=== PATIENT | male | born 1950 | race Caucasian/White ===

== ENCOUNTER 2016-08-21 16:44 | Inpatient (IN) | payer OTHER ==
[~2016-08-21] VITALS: Ht 188 cm; Wt 146.7 kg
[2016-08-21] MEDS ORDERED: ASPIRIN 81 MG CHEW TABLET As Ordered ONE (17:19)
[2016-08-21] MEDS ORDERED: METOPROLOL 5 MG/5 ML VIAL As Ordered ONE (17:45)
[2016-08-21 17:52] LABS: BASO # 0.2 K/mm3 (0.0-0.2); BASO % 2.1 % (0.0-1.0); EOS # 0.4 K/mm3 (0.0-0.50); EOS % 3.7 % (0.0-3.0); LARGE UNSTAINED CELL # 0.2 K/mm3 (0.0-0.4); LARGE UNSTAINED CELL % 2.4 % (0.0-4.0); LYMPH # 2.9 K/mm3 (1.5-4.5); LYMPH % 26.4 % (24.0-44.0); MEAN CORPUSCULAR HGB CONC 33.3 g/dl (32.0-36.5); MEAN CORPUSCULAR VOLUME 90.1 fl (80.0-96.0); MONO # 0.6 K/mm3 (0.0-0.8); MONO % 5.8 % (0.0-5.0); NEUTROPHILS % 59.5 % (36.0-66.0); PLATELET COUNT, AUTOMATED 316 k/mm3 (150-450); RED CELL DISTRIBUTION WIDTH 13.2 % (11.5-14.5); WHITE BLOOD COUNT 10.1 K/mm3 (4.0-10.0)
[2016-08-21 18:04] LABS: ANION GAP 11 MEQ/L (8-16); BLOOD UREA NITROGEN 20 MG/DL (7-18); CALCIUM LEVEL 9.4 MG/DL (8.8-10.2); CARBON DIOXIDE LEVEL 26 MEQ/L (21-32); CHLORIDE LEVEL 105 MEQ/L (98-107); CREATININE FOR GFR 0.99 MG/DL (0.70-1.30); GLOMERULAR FILTRATION RATE > 60.0 (>49); GLUCOSE, FASTING 95 MG/DL (80-110); POTASSIUM SERUM 4.1 MEQ/L (3.5-5.1); SODIUM LEVEL 142 MEQ/L (136-145); T UPTAKE 30 % (33-40)
--- NOTE | 2016-08-21 18:10 | REP ---
Chest x-ray: Two views: History: Chest pain. Findings: EKG monitoring electrodes overlie the chest. The lungs are symmetrically aerated and free of infiltrate. Pleural angles are sharp. Heart is not felt to be enlarged. Pulmonary vasculature is not increased. Impression: No active disease. Signed by Neo Greenfield MD 08/21/2016 06:42 P
[2016-08-21] MEDS: OMEGA-3 1050MG CAPSULE PO SCH (21:00)
[2016-08-21] MEDS ORDERED: ATORVASTATIN 20 MG TAB As Ordered ONE (22:41)
[2016-08-21] MEDS ORDERED: ACETAMINOPHEN TAB 650MG DOSE (2X325MG) PO PRN (22:45)
[2016-08-21] MEDS ORDERED: ONDANSETRON 4MG/2ML VIAL (J2405) IV PRN (22:45)
[2016-08-21] MEDS ORDERED: PERCOCET 5MG/325MG TAB PO PRN (22:45)
[2016-08-21] MEDS ORDERED: ONDANSETRON 4 MG TAB (S0181) PO PRN (22:45)
[2016-08-21] MEDS ORDERED: VERAPAMIL 180 MG SR TAB PO ONE (23:15)
[2016-08-21] MEDS ORDERED: carBAMazepine 200 MG TAB PO ONE (23:15)
[2016-08-21] MEDS ORDERED: PERCOCET 5MG/325MG TAB As Ordered ONE (23:36)
[2016-08-21] MEDS ORDERED: VERA1TAB11 PO (23:37)
[2016-08-21] MEDS ORDERED: ATOR1TAB18 PO (23:37)
[2016-08-21] MEDS ORDERED: OCUVTAB PO (23:37)
[2016-08-21] MEDS ORDERED: VALS1TAB46 PO (23:37)
[2016-08-21] MEDS ORDERED: CILO100T PO (23:37)
[2016-08-21] MEDS ORDERED: HYDR25TAB PO (23:37)
[2016-08-21] MEDS ORDERED: CARB1TAB20 PO (23:37)
[2016-08-21] MEDS ORDERED: ASPI81TAEC PO (23:37)
[2016-08-21] MEDS ORDERED: VITA100066 PO (23:37)
[2016-08-21] MEDS ORDERED: FISH1000 PO (23:37)
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
[2016-08-22 00:43] VITALS: BP 132/83
--- NOTE | 2016-08-22 00:43 | EDDOCDS ---
Physician Documentation [facility] Name: Carlos A England Age: 65 yrs Sex: Male : 1950 Arrival Date: 08/21/2016 Time: 16:44 Bed 10 Private MD: NO PRIMARY PHYSICIAN, . Disposition: 08/21/16 22:34 Hospitalization ordered by Rayna Pandey for Observation. Preliminary diagnosis is Unspecified atrial flutter. - Bed requested for PCU. - Status is Observation. cz - Condition is Stable. - Problem is new. - Symptoms have improved. Historical: - Allergies: no known allergies; - Home Meds: 1. atorvastatin 80 mg oral tab 1 tab once daily 2. Carbamazepine 400mg in am, 200mg in pm, 200mg in evening Oral 3. Vitamin D Oral 1,000 unit daily 4. cilostazol 100 mg oral tab 1 tab 2 times per day 5. Fish Oil 1,000 mg Oral cap 2 tabs daily 6. hydrochlorothiazide 25 mg Oral tab 1 tab once daily 7. multivitamin Oral tab 1 tablet daily 8. valsartan 80 mg oral tab 1 tab once daily 9. verapamil 180 mg Oral C24P 1 cap once daily 10. aspirin 81 mg Oral chew 1 tab once daily - PMHx: Hypertension; Hypercholesterolemia; hyperlipidemia; Sleep Apnea w/ CPAP; Trigeminal Neuralgia; peripheral artery disease; - PSHx: heart cath; repair of leg fracture; facial fracture repair; - Social history: Smoking status: Patient states former smoker of tobacco. No barriers to communication noted, The patient speaks fluent [place]. - Family history: Not pertinent. - : The pt / caregiver states he / she is not on anticoagulants. Home medication list is obtained from the patient. - Exposure Risk Screening:: None identified. Vital Signs: 08/21 16:47 BP 144 / 100; Pulse 131; Resp 18 S; Temp 96.0(O); Pulse Ox 98% on R/A; Weight 136.08 kg gr2 / 300.01 lbs (R); Height 6 ft. 2 in. (187.96 cm) (R); Pain 3/10; 17:35 BP 160 / 77; Pulse 131; Resp 20; Pulse Ox 97% on R/A; Pain 0/10; dwg 17:50 BP 146 / 92; Pulse 129; Resp 20; Pulse Ox 97% on R/A; dwg 17:55 BP 140 / 94; Pulse 123; Resp 16; Pulse Ox 98% on R/A; dwg 18:00 BP 136 / 107; Pulse 124; Resp 16; Pulse Ox 97% on R/A; dwg 18:43 BP 113 / 79; Pulse 122; Resp 20; Pulse Ox 98% on R/A; Pain 0/10; dwg 19:33 BP 122 / 79; Pulse 122; Resp 20; Pulse Ox 95% on R/A; Pain 0/10; cf2 20:00 BP 116 / 75; Pulse 124; Resp 18; Pulse Ox 100% on 2 lpm NC; cf2 20:30 BP 122 / 64; Pulse 122; Resp 18; Pulse Ox 100% on 2 lpm NC; cf2 21:00 BP 126 / 71; Pulse 122; Resp 18; Pulse Ox 100% on 2 lpm NC; cf2 22:15 BP 125 / 70; Pulse 124; Resp 18; Pulse Ox 100% on R/A; cf2 22:15 BP 144 / 88; Pulse 122; Resp 18; Pulse Ox 100% on 2 lpm NC; cf2 23:52 BP 123 / 62; Pulse 122; Resp 18; Temp 98.0; Pulse Ox 99% on 2 lpm NC; Pain 0/10; cf2 16:47 Body Mass Index 38.52 (136.08 kg, 187.96 cm) gr2 18:00 Denies any chest pain or shortness of breath. No changhe in heart rate following dwg Metoprolol IV x 3. MDM: 17:00 ECG WITH READING ER PHYS+CARDIAG ordered. EDMS 17:16 Aspirin Chewable Tablet 324 mg PO once ordered. fg 17:16 System Sales Consultant/Pulse Ox/q 30 min VS ordered. fg 17:16 IV Saline Lock ordered. fg 17:16 Rhythm Strip to chart ordered. fg 17:16 Undress patient appropriately for examination ordered. fg 17:18 Basic Metabolic Profile Ordered. EDMS 17:18 CBC with Diff Ordered. EDMS 17:18 Cardiac Injury Profile Ordered. EDMS 17:18 Partial Thromboplastin Time Ordered. EDMS 17:18 Prothrombin Time Profile\E\INR Ordered. EDMS 17:18 Troponin Ordered. EDMS 17:19 Chest, 2 View (pa\E\lat) Ordered. EDMS 17:25 Metoprolol 5 mg IVP every 5 minutes; Hold for SBP < 100 or HR < 60. x3 ordered. le 17:31 D-DIMER QUANT Ordered. EDMS 17:31 THYROID PROFILE Ordered. EDMS 17:38 BNP Ordered. EDMS 18:16 Basic Metabolic Profile Reviewed. le 18:16 CBC with Diff Reviewed. le 18:16 THYROID PROFILE Reviewed. le 18:16 Cardiac Injury Profile Reviewed. le 18:16 Partial Thromboplastin Time Reviewed. le 18:16 Prothrombin Time Profile\E\INR Reviewed. le 18:16 Troponin Reviewed. le 18:16 D-DIMER QUANT Reviewed. le 18:16 BNP Reviewed. le 18:16 Chest, 2 View (pa\E\lat) Reviewed. le 18:45 Financial registration complete. zo 18:51 [facility] Payment Agreement was scanned into [employer] and attached to record. zo 19:11 Diltiazem 10 mg IVP once; administer over 2 minutes ordered. le 19:53 Diltiazem 10 mg IVP once; administer over 2 minutes ordered. le 20:55 NS 0.9% 500 ml IV at bolus once ordered. le 22:37 carBAMazepine 400 mg PO once ordered. le 22:37 Atorvastatin 80 mg PO once ordered. le 22:37 Verapamil Extended Release Tablet 180 mg PO once ordered. le 22:41 CARDIAC MARKER PANEL Ordered. EDMS 22:41 CARDIAC MARKER PANEL Ordered. EDMS 22:41 CARDIAC MARKER PANEL Ordered. EDMS 22:42 CBC WITH DIFFERENTIAL Ordered. EDMS 22:42 BASIC METABOLIC PROFILE Ordered. EDMS 22:42 MAGNESIUM LEVEL Ordered. EDMS 22:43 BED REQUEST+ADM ordered. EDMS 22:44 Admission / Observation Status ordered. EDMS 22:44 ECHOCARD,DOPPLER/COLOR FLOW ordered. EDMS 22:44 2 GRAM SODIUM DIET ordered. EDMS 22:47 Acetaminophen Tablet 650 mg PO once ordered. le 23:51 oxyCODONE-acetaminophen 5 mg-325 mg 1 tabs PO once ordered. cf2 Administered Medications: Discontinued: NS 0.9% 500 ml IV at bolus once 17:20 Drug: Aspirin 324 mg [aspirin 81 mg chewable tablet (4 tabs)] Route: PO; dwg 17:50 Drug: Metoprolol 5 mg [metoprolol 5 mg/5 mL intravenous solution (5 mL)] Route: IVP; dwg Site: right antecubital; 17:55 Drug: Metoprolol 5 mg [metoprolol 5 mg/5 mL intravenous solution (5 mL)] Route: IVP; [facility] Site: right antecubital; 18:06 Drug: Metoprolol 5 mg [metoprolol 5 mg/5 mL intravenous solution (5 mL)] Route: IVP; [facility] Site: right antecubital; 19:41 Follow up: Response: No change in rate dw 19:20 Drug: Diltiazem 10 mg [diltiazem 5 mg/mL intravenous solution (2 mL)] Route: IVP; Site: cf2 left antecubital; 20:54 Follow up: Response: No significant change. cf2 19:41 CANCELLED (Duplicate Order): metoprolol 5 mg IV at bolus once [facility] 20:00 Drug: Diltiazem 10 mg [diltiazem 5 mg/mL intravenous solution (2 mL)] Route: IVP; Site: cf2 left antecubital; 20:54 Follow up: Response: No significant change. cf2 08/22 00:33 Follow up: Response: No significant change. cf2 08/21 20:55 Drug: NS 0.9% 500 ml [sodium chloride 0.9 % intravenous solution] Route: IV; Rate: cf2 bolus; Site: left antecubital; 23:48 Drug: carBAMazepine 400 mg [carbamazepine 200 mg tablet (2 tabs)] Route: PO; cf2 08/22 00:32 Follow up: Response: No significant change. cf2 08/21 23:48 Drug: Atorvastatin 80 mg [atorvastatin 20 mg tablet (4 tabs)] Route: PO; cf2 08/22 00:32 Follow up: Response: No significant change. cf2 08/21 23:48 Drug: Verapamil Extended Release Tablet 180 mg Route: PO; cf2 08/22 00:32 Follow up: Response: No significant change. cf2 08/21 23:48 Not Given (Patient Refused): Acetaminophen Tablet 650 mg PO once cf2 23:51 Drug: oxyCODONE-acetaminophen 1 tabs [oxycodone-acetaminophen 5 mg-325 mg tablet (1 cf2 tabs)] Route: PO; 08/22 00:32 Follow up: Response: No significant change. cf2 Signatures: Dispatcher [employer] EDMS KnowlesJcarlos RN RN dwg Peters, Mary, RN RN mcp Zecher, Calvin, MAILE GR cz Helena YamileNickShirlene, Game Preserve Manager Unit ml3 Rachna Mann Lisa, FNP FNP le Gill, Frances, MD MD Yoko Thompson RN RN cf2 The chart was reviewed and I authenticate all verbal orders and agree with the evaluation and treatment provided.Corrections: (The following items were deleted from the chart) 08/21 17:29 17:18 B-Type NATIURETIC PEPTIDE+LAB ordered. EDMS EDMS 17:31 17:26 D-DIMER QUANT+LAB ordered. EDMS EDMS 17:31 17:26 THYROID PROFILE+LAB ordered. EDMS EDMS 19:41 19:40 metoprolol 5 mg IV at bolus once ordered. juaquin reza Attachments: 18:51 [facility] Payment Agreement zo MTDD
--- NOTE | 2016-08-22 00:43 | EDDOCDS ---
Nurse's Notes [facility] Name: Carlos A England Age: 65 yrs Sex: Male : 1950 Arrival Date: 08/21/2016 Time: 16:44 Bed 10 Private MD: NO PRIMARY PHYSICIAN, . Diagnosis: Unspecified atrial flutter Presentation: 08/21 16:49 Presenting complaint: Patient states: Sent here from [place] for evaluation of atrial mcp flutter. Heart racing, face hot. Adult Sepsis Screening: The patient does not have new or worsening altered mentation. Patient's respiratory rate is less than 22. Systolic blood pressure is greater than 100. Patient has a qSOFA score of 0- Negative Sepsis Screen. Suicide/Homicide risk assessment- the patient denies having any suicidal and/or homicidal ideations and does not present with any other emotional, behavioral or mental health complaints. Status: Patient is not a facility service associate or dependent. Transition of care: patient was not received from another setting of care. 16:49 Acuity: JACK Level 3 [facility] 16:49 Method Of Arrival: Walkin/Carried/Asstd [facility] Triage Assessment: 16:56 General: Appears in no apparent distress, Behavior is cooperative. Pain: Denies pain. [facility] HIV screening NA for this visit Offered previously. Neurological: No deficits noted. Respiratory: Airway is patent Respiratory effort is even, unlabored. Derm: Skin is pink, warm & dry. Historical: - Allergies: no known allergies; - Home Meds: 1. atorvastatin 80 mg oral tab 1 tab once daily 2. Carbamazepine 400mg in am, 200mg in pm, 200mg in evening Oral 3. Vitamin D Oral 1,000 unit daily 4. cilostazol 100 mg oral tab 1 tab 2 times per day 5. Fish Oil 1,000 mg Oral cap 2 tabs daily 6. hydrochlorothiazide 25 mg Oral tab 1 tab once daily 7. multivitamin Oral tab 1 tablet daily 8. valsartan 80 mg oral tab 1 tab once daily 9. verapamil 180 mg Oral C24P 1 cap once daily 10. aspirin 81 mg Oral chew 1 tab once daily - PMHx: Hypertension; Hypercholesterolemia; hyperlipidemia; Sleep Apnea w/ CPAP; Trigeminal Neuralgia; peripheral artery disease; - PSHx: heart cath; repair of leg fracture; facial fracture repair; - Social history: Smoking status: Patient states former smoker of tobacco. No barriers to communication noted, The patient speaks fluent Latvian. - Family history: Not pertinent. - : The pt / caregiver states he / she is not on anticoagulants. Home medication list is obtained from the patient. - Exposure Risk Screening:: None identified. Screenin:33 Screening information is obtained from the patient. Fall risk: No risks identified. cf2 Assistance ADL's: requires no assistance with activities of daily living. Abuse/DV Screen: The patient / caregiver reports he/she is: not in a situation that causes fear, pain or injury. Nutritional screening: No deficits noted. Advance Directives: Further advance directive information is declined. home support is adequate. Assessment: 17:35 General: Appears in no apparent distress, comfortable, Behavior is cooperative, dwg pleasant. Pain: Denies pain. Neurological: Level of Consciousness is awake, alert, Oriented to person, place, time. Cardiovascular:. Respiratory: Airway is patent Respiratory effort is even, unlabored, Respiratory pattern is regular, symmetrical. 18:24 General: Remains in fast A-flutter on monitor, denies any chest discomfort, SOB or dwg dizziness.. 18:42 General: Awake and alert, denies chest pain, at bedside, remains in fast A-flutter dwg in the 120's.. 23:52 Reassessment: Patient appears in no apparent distress at this time. Patient states cf2 feeling better. Patient states symptoms have not improved. Adult Sepsis Screening: The patient does not have new or worsening altered mentation. Patient's respiratory rate is less than 22. Systolic blood pressure is greater than 100. Patient has a qSOFA score of 0- Negative Sepsis Screen. Vital Signs: 16:47 BP 144 / 100; Pulse 131; Resp 18 S; Temp 96.0(O); Pulse Ox 98% on R/A; Weight 136.08 kg gr2 (R); Height 6 ft. 2 in. (187.96 cm) (R); Pain 3/10; 17:35 BP 160 / 77; Pulse 131; Resp 20; Pulse Ox 97% on R/A; Pain 0/10; dwg 17:50 BP 146 / 92; Pulse 129; Resp 20; Pulse Ox 97% on R/A; dwg 17:55 BP 140 / 94; Pulse 123; Resp 16; Pulse Ox 98% on R/A; dwg 18:00 BP 136 / 107; Pulse 124; Resp 16; Pulse Ox 97% on R/A; dwg 18:43 BP 113 / 79; Pulse 122; Resp 20; Pulse Ox 98% on R/A; Pain 0/10; dwg 19:33 BP 122 / 79; Pulse 122; Resp 20; Pulse Ox 95% on R/A; Pain 0/10; cf2 20:00 BP 116 / 75; Pulse 124; Resp 18; Pulse Ox 100% on 2 lpm NC; cf2 20:30 BP 122 / 64; Pulse 122; Resp 18; Pulse Ox 100% on 2 lpm NC; cf2 21:00 BP 126 / 71; Pulse 122; Resp 18; Pulse Ox 100% on 2 lpm NC; cf2 22:15 BP 125 / 70; Pulse 124; Resp 18; Pulse Ox 100% on R/A; cf2 22:15 BP 144 / 88; Pulse 122; Resp 18; Pulse Ox 100% on 2 lpm NC; cf2 23:52 BP 123 / 62; Pulse 122; Resp 18; Temp 98.0; Pulse Ox 99% on 2 lpm NC; Pain 0/10; cf2 16:47 Body Mass Index 38.52 (136.08 kg, 187.96 cm) gr2 18:00 Denies any chest pain or shortness of breath. No changhe in heart rate following dwg Metoprolol IV x 3. Vitals: 16:47 Log In Time: August 21, 2016 at 16:47. RN notified that patient meets Red Flag gr2 criteria. ED Course: 16:46 Patient visited by Rohit Gallego. gr2 16:46 NO PRIMARY PHYSICIAN, . is Private Physician. gr2 16:46 Patient moved to Waiting gr2 16:48 Patient visited by Rohit Gallego. gr2 16:48 Patient moved to Pre RCE gr2 16:50 Triage Initiated [facility] 16:56 Patient visited by Yamile Martinez, MAILE. [facility] 16:56 Elyssa Castillo,RN is Primary Nurse. [facility] 16:56 Patient moved to 10 mcp 17:07 EKG done. (by ED staff). Reviewed by Paige SHAH. jrd 17:08 Patient visited by Rip Holguin, MARILYN. jrd 17:21 Primary Nurse role handed off by Elyssa Castillo RN mcp 17:24 [facility]ente F[facility]. le 17:32 Patient visited by Paige Valente FNP. le 17:33 Patient visited by Paige Valente FNP. le 17:34 THYROID PROFILE Sent. dwg 17:34 D-DIMER QUANT Sent. dwg 17:34 Basic Metabolic Profile Sent. dwg 17:34 CBC with Diff Sent. dwg 17:34 Cardiac Injury Profile Sent. dwg 17:34 Partial Thromboplastin Time Sent. dwg 17:35 Prothrombin Time Profile\E\INR Sent. dwg 17:35 Troponin Sent. dwg 18:09 Patient visited by Jcarols Knowles RN. dwg 18:12 Chest, 2 View (pa\E\lat) Returned. EDMS 18:24 Patient visited by Jcarlos Knowles RN. dwg 18:43 Patient visited by Jcarlos Knowles RN. dwg 18:51 [facility] Payment Agreement was scanned into [employer] and attached to record. zo 18:57 Patient name changed from Carlos A\S\B\S\Samanta\S\ to Carlos A\S\M\S\Samanta. EDMS 19:11 Chest, 2 View (pa\E\lat) Returned. EDMS 19:15 Yoko Thompson,RN is Primary Nurse. cf2 19:15 Patient visited by Yoko Thompson,MAILE. cf2 19:33 The patient / caregiver is instructed regarding the plan of care and ED course. Patient cf2 has correct armband on for positive identification. Placed in gown. Bed in low position. Call light in reach. Side rails up X 1. Side rails up X2. plan manager on. Pulse ox on. NIBP on. Property :Personal belongings accompany Pt. Door closed. Noise minimized. Visitors limited. Lights dimmed. Moved to private room. Verbal reassurance given. Warm blanket given. Pillow given. Head of bed elevated. 19:55 Patient visited by Yoko Thompson,MAILE. cf2 20:28 Patient visited by Yoko Thompson,MAILE. cf2 21:08 Patient visited by Yoko Thompson RN. cf2 21:17 Patient visited by Yoko Thompson RN. cf2 21:23 Patient visited by Gavino Wild PCA. kb5 21:47 Patient visited by Yoko Thompson RN. cf2 22:34 Rayna Pandey is Hospitalizing Provider. le 23:05 Patient visited by Gavino Wild PCA. kb5 23:57 Patient visited by Yoko Thompson RN. cf2 08/22 00:05 Patient visited by Yoko Thompson RN. cf2 00:23 Patient visited by Yoko Thompson RN. cf2 00:26 Inserted saline lock: 20 gauge in left antecubital area. No procedures done that cf2 require assistance. Administered Medications: Discontinued: NS 0.9% 500 ml IV at bolus once 08/21 17:20 Drug: Aspirin 324 mg [aspirin 81 mg chewable tablet (4 tabs)] Route: PO; dwg 17:50 Drug: Metoprolol 5 mg [metoprolol 5 mg/5 mL intravenous solution (5 mL)] Route: IVP; dwg Site: right antecubital; 17:55 Drug: Metoprolol 5 mg [metoprolol 5 mg/5 mL intravenous solution (5 mL)] Route: IVP; dwg Site: right antecubital; 18:06 Drug: Metoprolol 5 mg [metoprolol 5 mg/5 mL intravenous solution (5 mL)] Route: IVP; dwg Site: right antecubital; 19:41 Follow up: Response: No change in rate dwg 19:20 Drug: Diltiazem 10 mg [diltiazem 5 mg/mL intravenous solution (2 mL)] Route: IVP; Site: cf2 left antecubital; 20:54 Follow up: Response: No significant change. cf2 19:41 CANCELLED (Duplicate Order): metoprolol 5 mg IV at bolus once [facility] 20:00 Drug: Diltiazem 10 mg [diltiazem 5 mg/mL intravenous solution (2 mL)] Route: IVP; Site: cf2 left antecubital; 20:54 Follow up: Response: No significant change. cf2 08/22 00:33 Follow up: Response: No significant change. cf2 08/21 20:55 Drug: NS 0.9% 500 ml [sodium chloride 0.9 % intravenous solution] Route: IV; Rate: cf2 bolus; Site: left antecubital; 23:48 Drug: carBAMazepine 400 mg [carbamazepine 200 mg tablet (2 tabs)] Route: PO; cf2 08/22 00:32 Follow up: Response: No significant change. cf2 08/21 23:48 Drug: Atorvastatin 80 mg [atorvastatin 20 mg tablet (4 tabs)] Route: PO; cf2 08/22 00:32 Follow up: Response: No significant change. cf2 08/21 23:48 Drug: Verapamil Extended Release Tablet 180 mg Route: PO; cf2 08/22 00:32 Follow up: Response: No significant change. cf2 08/21 23:48 Not Given (Patient Refused): Acetaminophen Tablet 650 mg PO once cf2 23:51 Drug: oxyCODONE-acetaminophen 1 tabs [oxycodone-acetaminophen 5 mg-325 mg tablet (1 cf2 tabs)] Route: PO; 08/22 00:32 Follow up: Response: No significant change. cf2 Order Results: Lab Order: Basic Metabolic Profile; SPEC'M 08/21/16 17:30 Test: GLUCOSE, FASTING; Value: 95; Range: 80-110; Units: MG/DL; Status: F Test: BLOOD UREA NITROGEN; Value: 20; Range: 7-18; Abnormal: Above high normal; Units: MG/DL; Status: F Test: CREATININE FOR GFR; Value: 0.99; Range: 0.70-1.30; Units: MG/DL; Status: F Test: GLOMERULAR FILTRATION RATE; Value: > 60.0; Range: >49; Status: F Test: SODIUM LEVEL; Value: 142; Range: 136-145; Units: MEQ/L; Status: F Test: POTASSIUM SERUM; Value: 4.1; Range: 3.5-5.1; Units: MEQ/L; Status: F Test: CHLORIDE LEVEL; Value: 105; Range: 98-107; Units: MEQ/L; Status: F Test: CARBON DIOXIDE LEVEL; Value: 26; Range: 21-32; Units: MEQ/L; Status: F Test: ANION GAP; Value: 11; Range: 8-16; Units: MEQ/L; Status: F Test: CALCIUM LEVEL; Value: 9.4; Range: 8.8-10.2; Units: MG/DL; Status: F Test Note: ; Units are mL/min/1.73 m2 Chronic Kidney Disease Staging per NKF: Stage I & II GFR >=60 Normal to Mildly Decreased Stage III GFR 30-59 Moderately Decreased Stage IV GFR 15-29 Severely Decreased Stage V GFR <15 Very Little GFR Left ESRD GFR <15 on MANAGER SPECIAL EVENTS Lab Order: CBC with Diff; SPEC'M 08/21/16 17:30 Test: WHITE BLOOD COUNT; Value: 10.1; Range: 4.0-10.0; Abnormal: Above high normal; Units: K/mm3; Status: F Test: RED BLOOD COUNT; Value: 5.42; Range: 4.30-6.10; Units: M/mm3; Status: F Test: HEMOGLOBIN; Value: 16.3; Range: 14.0-18.0; Units: g/dl; Status: F Test: HEMATOCRIT; Value: 48.8; Range: 42.0-52.0; Units: %; Status: F Test: MEAN CORPUSCULAR VOLUME; Value: 90.1; Range: 80.0-96.0; Units: fl; Status: F Test: MEAN CORPUSCULAR HEMOGLOBIN; Value: 30.0; Range: 27.0-33.0; Units: pg; Status: F Test: MEAN CORPUSCULAR HGB CONC; Value: 33.3; Range: 32.0-36.5; Units: g/dl; Status: F Test: RED CELL DISTRIBUTION WIDTH; Value: 13.2; Range: 11.5-14.5; Units: %; Status: F Test: PLATELET COUNT, AUTOMATED; Value: 316; Range: 150-450; Units: k/mm3; Status: F Test: NEUTROPHILS %; Value: 59.5; Range: 36.0-66.0; Units: %; Status: F Test: LYMPH %; Value: 26.4; Range: 24.0-44.0; Units: %; Status: F Test: MONO %; Value: 5.8; Range: 0.0-5.0; Abnormal: Above high normal; Units: %; Status: F Test: EOS %; Value: 3.7; Range: 0.0-3.0; Abnormal: Above high normal; Units: %; Status: F Test: BASO %; Value: 2.1; Range: 0.0-1.0; Abnormal: Above high normal; Units: %; Status: F Test: LARGE UNSTAINED CELL %; Value: 2.4; Range: 0.0-4.0; Units: %; Status: F Test: NEUTROPHILS #; Value: 6.0; Range: 1.8-7.7; Units: K/mm3; Status: F Test: LYMPH #; Value: 2.9; Range: 1.5-4.5; Units: K/mm3; Status: F Test: MONO #; Value: 0.6; Range: 0.0-0.8; Units: K/mm3; Status: F Test: EOS #; Value: 0.4; Range: 0.0-0.50; Units: K/mm3; Status: F Test: BASO #; Value: 0.2; Range: 0.0-0.2; Units: K/mm3; Status: F Test: LARGE UNSTAINED CELL #; Value: 0.2; Range: 0.0-0.4; Units: K/mm3; Status: F Lab Order: Cardiac Injury Profile; SPEC 08/21/16 17:30 Test: CPK CREATINE PHOSPHOKINASE; Value: 110; Range: 39-308; Units: U/L; Status: F Test: CK-MB VALUE MASS; Value: 1.0; Range: 0.0-3.6; Units: NG/ML; Status: F Test: MB/CK RELATIVE INDEX; Value: 0.90; Range: < OR =4; Status: F Test Note: ; DIAGNOSIS CRITERIA MMB ng/ml Relative Index (RI) NON-AMI < or = 5 N/A GAINES ZONE > 5 < or = 4 AMI > 5 > 4 Lab Order: Partial Thromboplastin Time; SPEC 08/21/16 17:30 Test: PARTIAL THROMBOPLASTIN TIME; Value: 30.4; Range: 26.6-37.1; Units: SECONDS; Status: F Lab Order: Prothrombin Time Profile\E\INR; [facility] 08/21/16 17:30 Test: PROTHROMBIN TIME; Value: 13.3; Range: 12.3-14.5; Units: SECONDS; Status: F Test: INR; Value: 1.00; Status: F Test Note: ; THERAPUTIC HUMAN INR VALUES INDICATIONS NORMAL RANGES PROPHYLAXIS/TREATMENT OF: VENOUS THROMBOSIS 2.0-3.0 PULMONARY EMBOLISM 2.0-3.0 PREVENTION OF SYSTEMIC EMBOLISM FROM: TISSUE HEART VALVES 2.0-3.0 ACUTE MYOCARDIAL INFARCTION 2.0-3.0 VALVULAR HEART DISEASE 2.0-3.0 ATRIAL FIBRILLATION 2.0-3.0 MECHANICAL VALVES(HIGH RISK) 2.5-3.5 RECURRENT MYOCARDIAL INFARCTION 2.5-3.5 Lab Order: Troponin; [facility] 08/21/16 17:30 Test: TROPONIN I; Value: < 0.02; Range: < 0.10; Units: NG/ML; Status: F Test Note: ; Troponin I Reference Interval for [facility] LOCI: 99th Percentile= 0.00-0.045 ng/ml Risk Stratification: <= 0.10 ng/ml Decreased Risk for Adverse Clinical Events. 0.10-1.50 ng/ml Increased Risk for Adverse Clinical Events. Evaluation of additional criterion and/or repeat testing in 2-6 hours is suggested to rule out myocardial damage. >= 1.50 ng/ml Indicative of Myocardial Injury. Lab Order: D-DIMER QUANT; [facility] 08/21/16 17:30 Test: D-DIMER QUANT; Value: < 270.0; Range: <500; Units: ng/ml; Status: F Lab Order: THYROID PROFILE; [facility] 08/21/16 17:30 Test: T UPTAKE; Value: 30; Range: 33-40; Abnormal: Below low normal; Units: %; Status: F Test: THYROXINE (T4); Value: 8.0; Range: 4.5-12.0; Units: UG/DL; Status: F Test: FREE THYROXINE INDEX; Value: 2.4; Range: 1.4-3.8; Units: %; Status: F Test: THYROID STIMULATING HORMONE; Value: 3.310; Range: 0.358-3.740; Units: uIU/ML; Status: F Lab Order: BNP; [facility] 08/21/16 17:22 Test: BRAIN NATRIURETIC PEPTIDE; Value: 11.7; Range: <100; Units: PG/ML; Status: F Radiology Order: Chest, 2 View (pa\E\lat) Test: Chest, 2 View (pa\E\lat) REASON FOR EXAMINATION: Chest Pain; Chest x-ray: Two views:; ; History: Chest pain.; ; Findings: EKG monitoring electrodes overlie the chest. The lungs are; symmetrically aerated and free of infiltrate. Pleural angles are sharp. Heart; is not felt to be enlarged. Pulmonary vasculature is not increased.; ; Impression:; ; No active disease.; ; ; Signed by; Neo Greenfield MD 08/21/2016 06:42 P; Outcome: 08/21 22:34 Decision to Hospitalize by Provider. castro 08/22 00:26 Discharge Assessment: Patient awake, alert and oriented x 3. No cognitive and/or cf2 functional deficits noted. Patient verbalized understanding of disposition instructions. Patient patient administered narcotics - yes. Patient was admitted to the hospital or transferred to another facility. The following High Risk Discharge criteria are identified: Yes, Admitted to PCU. Condition: stable. No special radiology studies were completed. 00:42 Patient left the ED. cz Signatures: Dispatcher [employer] EDJcarlos Fulton, RN RN Yamile Brunson RN RN Gera Martin RN RN cz Olin, Zoeann zo Bancroft, Kristopher, CROSSBAR SWITCH ADJUSTER CROSSBAR SWITCH ADJUSTER kb5 Paige Valente, DEPUTY INSURANCE COMMISSIONER DEPUTY INSURANCE COMMISSIONER Rohit Beaulieu gr2 Rip Holguin, CROSSBAR SWITCH ADJUSTER CROSSBAR SWITCH ADJUSTER jrd Yoko Thompson,MAILE RN cf2 MTDD
[2016-08-22] MEDS: METOPROLOL TART 25 MG TABLET PO SCH ×4 (01:15→17:14)
[2016-08-22 04:52] VITALS: BP 152/89
[2016-08-22 05:39] LABS: BASO # 0.2 K/mm3 (0.0-0.2); BASO % 1.6 % (0.0-1.0); EOS # 0.4 K/mm3 (0.0-0.50); EOS % 4.5 % (0.0-3.0); LARGE UNSTAINED CELL # 0.2 K/mm3 (0.0-0.4); LARGE UNSTAINED CELL % 2.2 % (0.0-4.0); LYMPH # 3.7 K/mm3 (1.5-4.5); LYMPH % 34.1 % (24.0-44.0); MEAN CORPUSCULAR HGB CONC 32.8 g/dl (32.0-36.5); MEAN CORPUSCULAR VOLUME 91.5 fl (80.0-96.0); MONO # 0.6 K/mm3 (0.0-0.8); NEUTROPHILS # 5.3 K/mm3 (1.8-7.7); NEUTROPHILS % 51.7 % (36.0-66.0); PLATELET COUNT, AUTOMATED 300 k/mm3 (150-450); RED CELL DISTRIBUTION WIDTH 13.2 % (11.5-14.5); WHITE BLOOD COUNT 10.2 K/mm3 (4.0-10.0)
[2016-08-22 05:46] LABS: ANION GAP 9 MEQ/L (8-16); BLOOD UREA NITROGEN 23 MG/DL (7-18); CALCIUM LEVEL 8.5 MG/DL (8.8-10.2); CARBON DIOXIDE LEVEL 27 MEQ/L (21-32); CHLORIDE LEVEL 106 MEQ/L (98-107); CREATININE FOR GFR 0.97 MG/DL (0.70-1.30); GLOMERULAR FILTRATION RATE > 60.0 (>49); GLUCOSE, FASTING 90 MG/DL (80-110); MAGNESIUM LEVEL 2.1 MG/DL (1.8-2.4); POTASSIUM SERUM 3.6 MEQ/L (3.5-5.1); SODIUM LEVEL 142 MEQ/L (136-145)
--- NOTE | 2016-08-22 06:50 | ECGEPIP ---
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
[2016-08-22 08:00] VITALS: BP 115/90
[2016-08-22] MEDS ORDERED: DIGOXIN INJ 0.5 MG/2 ML AMP (J1160) IV ONE (08:00)
[2016-08-22] MEDS: OMEGA-3 1050MG CAPSULE PO SCH ×2 (08:59→20:23)
[2016-08-22] MEDS: APIXABAN 5 MG TAB (ELIQUIS) PO SCH ×2 (08:59→20:23)
[2016-08-22] MEDS: VITAMIN D 1,000 INTERNATIONAL UNITS TABLET PO SCH ×2 (08:59→20:23)
[2016-08-22] MEDS ORDERED: hydroCHLOROthiazide 25 MG TAB PO SCH (09:00)
[2016-08-22] MEDS ORDERED: VALSARTAN 40MG TABLET (DIOVAN) PO SCH (09:00)
[2016-08-22] MEDS ORDERED: VALSARTAN 80 MG TAB (DIOVAN) PO SCH (09:00)
--- NOTE | 2016-08-22 10:08 | IPN ---
DATE: 08/22/2016 The patient seen and examined at the bedside. The chart has been reviewed. Telemetry continues to have atrial flutter with rapid ventricular rate of 117 to 123. The patient denies any chest pain, pressure or tightness, palpitations, lightheadedness, dizziness or near syncopal episode. Denies any nausea, vomiting, epigastric pain, diaphoresis. No constipation or diarrhea. No abdominal pain. Temperature 96.7, pulse 117, respiratory rate 20, blood pressure 115/90 and 97% on room air. General: The patient is awake, alert and oriented times three, answering questions appropriately. No respiratory distress. Speaks in full sentences. No jugular venous distention. No thyromegaly. No lymphadenopathy. Lungs are clear to auscultation. No wheezing, rales or rhonchi. Heart: S1, S2. Irregularly irregular. Abdomen is obese, soft, nontender, nondistended. Positive bowel sounds. Extremities: Trace edema. White count 10, hemoglobin 15, hematocrit 46, and platelet count 300. Sodium 142, potassium 3.6, chloride 106, bicarbonate 27, BUN 23, creatinine 0.97, glucose 90, troponin less than 0.02. BNP 11.7. TSH 3.310. Imaging Studies: Chest x-ray on 08/21/2016 shows no active disease. ASSESSMENT AND PLAN: 65-year-old male with history of hypertension, hyperlipidemia, peripheral arterial disease, history of sleep apnea on CPAP, who presents to the emergency room due to new finding of atrial flutter in the 140s. The patient was sent by his primary care physician to the ER for rate control. CURRENT ISSUES: 1. Atrial flutter with rapid ventricular rate. The patient's heart rate was 140s. The patient had received Verapamil with no improvement. Currently on Eliquis, metoprolol titrated to 37.5 mg every 6 hours, one dose of digoxin. The patient's blood pressure is well maintained. Echocardiogram. Continue with anticoagulation to prevent CVA. 2. Hypertension. Stable. Due to increasing doses of metoprolol, will have to decrease the patient's valsartan and discontinue the hydrochlorothiazide. She has a blood pressure increased to 160s. The patient's blood pressure medications will be titrated for better control. 3. Hyperlipidemia. 4. History of peripheral arterial disease. Continue Lipitor. DISPOSITION: One echocardiogram has been done and rate is controlled the patient may be discharged home with outpatient followup with his primary care physician. DEANGELO
[2016-08-22 11:47] VITALS: BP 138/89
[2016-08-22] MEDS: carBAMazepine 200 MG TAB PO SCH ×2 (11:51→20:23)
[2016-08-22] MEDS: OCUVITE 1 TAB PO SCH (11:51)
[2016-08-22 16:00] VITALS: BP 149/98
--- NOTE | 2016-08-22 19:10 | ECHO ---
DATE OF PROCEDURE: 08/22/2015 REFERRING PHYSICIAN: Dr. Pandey INDICATION: Atrial flutter. HEIGHT: 188 cm WEIGHT: 146 kg. DIMENSIONS: IVS: 1.2 LV: 4.4 LVPW: 1.2 LA: 3.5 IVC: 2.0 FINDINGS: The study was rather limited technical quality corresponding to patient's body habitus. The patient was during study in atrial flutter with ventricular rate around 115 beats per minute. Left ventricle is of normal size. There is mild left ventricular hypertrophy ( LVH). Based on very poor quality of images I assume normal or relatively normal left ventricular (LV) systolic function. Right ventricle does not appear grossly enlarged. Both atria appear grossly normal. Aortic valve is sclerotic. The visualization was limited and I cannot comment much on its structure. Mitral and tricuspid valves appear grossly normal. Pulmonic valve was not well seen. No pericardial effusion is noted. Inferior vena cava is in upper limits of normal size. Aortic root and aortic arch appear normal. Abdominal aorta was not seen. Doppler interrogation of aortic valve reveals approximately mild to moderate stenosis. Peak gradient across the valve was 26 and mean gradient 15 mmHg. There is also trivial aortic insufficiency. There is no significant mitral stenosis or insufficiency and no significant tricuspid insufficiency. Evaluation of diastolic function was inconclusive due to presence of atrial flutter. Tissue Doppler velocities are relatively preserved though ( 9.2 and 12.6 cm/s in a septal and lateral mitral annulus respectively). CONCLUSION: 1. Study is of limited technical quality. 2. Normal LV size with mild LVH and grossly preserved LV systolic function based on poor visualization. 3. Mild or [id number] aortic stenosis. 4. No further significant valvular disease. 5. Likely high central venous pressure. 6. Unable to estimate pulmonary artery pressure. 7. Normal aortic root and aortic arch. COMMENT: Subacute bacterial endocarditis (SBE) prophylaxis is not recommended. [facility]
[2016-08-22 19:51] VITALS: BP 130/95
[2016-08-22] MEDS: ATORVASTATIN 20 MG TAB PO SCH (20:23)
[2016-08-22] MEDS: VERAPAMIL 180 MG SR TAB PO SCH (20:24)
[2016-08-23 00:18] VITALS: BP 120/82
[2016-08-23] MEDS: METOPROLOL TART 25 MG TABLET PO SCH ×2 (00:22→05:17)
[2016-08-23 05:14] VITALS: BP 123/92
[2016-08-23 05:39] LABS: BASO # 0.2 K/mm3 (0.0-0.2); BASO % 2.1 % (0.0-1.0); EOS # 0.5 K/mm3 (0.0-0.50); EOS % 4.5 % (0.0-3.0); LARGE UNSTAINED CELL # 0.2 K/mm3 (0.0-0.4); LARGE UNSTAINED CELL % 1.8 % (0.0-4.0); LYMPH # 3.1 K/mm3 (1.5-4.5); LYMPH % 27.3 % (24.0-44.0); MEAN CORPUSCULAR HEMOGLOBIN 29.5 pg (27.0-33.0); MEAN CORPUSCULAR HGB CONC 33.2 g/dl (32.0-36.5); MEAN CORPUSCULAR VOLUME 88.9 fl (80.0-96.0); MONO # 0.6 K/mm3 (0.0-0.8); MONO % 6.1 % (0.0-5.0); NEUTROPHILS # 6.2 K/mm3 (1.8-7.7); NEUTROPHILS % 58.2 % (36.0-66.0); PLATELET COUNT, AUTOMATED 302 k/mm3 (150-450); RED CELL DISTRIBUTION WIDTH 13.1 % (11.5-14.5); WHITE BLOOD COUNT 10.6 K/mm3 (4.0-10.0)
[2016-08-23 06:03] LABS: ANION GAP 11 MEQ/L (8-16); BLOOD UREA NITROGEN 24 MG/DL (7-18); CALCIUM LEVEL 8.5 MG/DL (8.8-10.2); CARBON DIOXIDE LEVEL 26 MEQ/L (21-32); CHLORIDE LEVEL 107 MEQ/L (98-107); CREATININE FOR GFR 0.88 MG/DL (0.70-1.30); GLOMERULAR FILTRATION RATE > 60.0 (>49); GLUCOSE, FASTING 88 MG/DL (80-110); MAGNESIUM LEVEL 2.2 MG/DL (1.8-2.4); POTASSIUM SERUM 3.9 MEQ/L (3.5-5.1); SODIUM LEVEL 144 MEQ/L (136-145)
[2016-08-23] MEDS ORDERED: DIGOXIN INJ 0.5 MG/2 ML AMP (J1160) IV STA (07:00)
[2016-08-23 07:43] LABS: DIGOXIN LEVEL 0.4 NG/ML (0.5-2.0)
[2016-08-23 08:00] VITALS: BP 142/82
--- NOTE | 2016-08-23 08:15 | IPN ---
DATE: 08/23/2016 The patient seen and examined at the bedside. The chart has been reviewed. This morning, the patient denies chest pain, pressure or tightness, palpitations, lightheadedness or dizziness. He says that his face felt a little flushed this morning. No nausea. No vomiting. No abdominal pain. Telemetry continues to be irregular with heart rate ranging from 119 to 125. The patient ambulated well. Pulse 119, respiratory rate 20, blood pressure 123/92 and 100% on room air. Generally, awake, alert and oriented times three, answering questions appropriately. Lungs are clear to auscultation. No wheezing, rales or rhonchi. Heart: S1, S2. Irregularly irregular. Abdomen is obese, soft, nontender, nondistended. Positive bowel sounds. Extremities: Trace edema. LABORATORY DATA: White count 10.6, hemoglobin 16, hematocrit 48, and platelet count 302. Sodium 144, potassium 3.9, bicarbonate 27, BUN 24, creatinine 0.8, glucose 88. Digoxin level 0.4. MICROBIOLOGY: None. IMAGING STUDY: Chest x-ray with no active disease. ASSESSMENT AND PLAN: This is a 65-year-old male with history of hypertension, hyperlipidemia, with probable history of sleep apnea on CPAP, and peripheral arterial disease who presents to the emergency room with atrial flutter sent by primary care physician for rate control. 1. Atrial flutter with rapid ventricular rate. Heart rate is in the 140s. Currently on Verapamil with no improvement. Started on Eliquis. Metoprolol has been titrated to 37.5 yesterday, will increase to 50 every 6 hours today. Extra dose of digoxin. He did receive 0.5 mg yesterday with digoxin level of 0.4 today. Echocardiogram is unremarkable. Continue with Eliquis for CVA prophylaxis. If no significant improvement with maximum doses of metoprolol and digoxin, will consult cardiology for use of amiodarone for cardioversion. 2. Hypertension, currently stable. The patient's valsartan was decreased as well as discontinued hydrochlorothiazide due to increasing doses of metoprolol being given for heart rate control. Patient continues to have adequate blood pressure. In order for us to titrate the metoprolol for heart rate control if the blood pressure were to decrease to less than 100 we will continue to give digoxin for heart rate control without affecting the blood pressure further. 3. Hyperlipidemia, on fish oil. 4. Peripheral arterial disease. Continue on Lipitor. DISPOSITION: The patient's heart rate is still not optimized, therefore, will keep one more day. If patient's heart rate increases to 140, will place on intravenous drip. If systolic pressure is less than 100, will consult cardiology for amiodarone management. MTDD
[2016-08-23] MEDS: VITAMIN D 1,000 INTERNATIONAL UNITS TABLET PO SCH ×2 (08:39→20:31)
[2016-08-23] MEDS: OMEGA-3 1050MG CAPSULE PO SCH ×2 (08:39→20:31)
[2016-08-23] MEDS: OCUVITE 1 TAB PO SCH (08:39)
[2016-08-23] MEDS: APIXABAN 5 MG TAB (ELIQUIS) PO SCH ×2 (08:39→20:31)
[2016-08-23] MEDS: carBAMazepine 200 MG TAB PO SCH ×2 (08:41→20:32)
[2016-08-23] MEDS ORDERED: METOPROLOL SUCC *XL* 25MG TAB (TopROL *XL*) PO SCH (09:00)
[2016-08-23] MEDS ORDERED: METOPROLOL SUCC *XL* 25MG TAB (TopROL *XL*) PO ONE (09:00)
[2016-08-23 12:00] VITALS: BP 131/75
[2016-08-23] MEDS: METOPROLOL TART 50 MG TAB PO SCH ×3 (12:06→23:24)
[2016-08-23 16:00] VITALS: BP 113/70
[2016-08-23 20:00] VITALS: BP 150/77
[2016-08-23] MEDS: VERAPAMIL 180 MG SR TAB PO SCH (20:31)
[2016-08-23] MEDS: ATORVASTATIN 20 MG TAB PO SCH (20:32)
[2016-08-24] VITALS: BP 157/89
--- NOTE | 2016-08-24 01:44 | EDDOCDS ---
Physician Documentation [facility] Name: Carlos A England Age: 65 yrs Sex: Male : 1950 Arrival Date: 08/21/2016 Time: 16:44 Bed 10 Private MD: NO PRIMARY PHYSICIAN, . Disposition: 08/21/16 22:34 Hospitalization ordered by Rayna Pandey for Observation. Preliminary diagnosis is Unspecified atrial flutter. - Bed requested for PCU. - Status is Observation. cz - Condition is Stable. - Problem is new. - Symptoms have improved. Historical: - Allergies: no known allergies; - Home Meds: 1. atorvastatin 80 mg oral tab 1 tab once daily 2. Carbamazepine 400mg in am, 200mg in pm, 200mg in evening Oral 3. Vitamin D Oral 1,000 unit daily 4. cilostazol 100 mg oral tab 1 tab 2 times per day 5. Fish Oil 1,000 mg Oral cap 2 tabs daily 6. hydrochlorothiazide 25 mg Oral tab 1 tab once daily 7. multivitamin Oral tab 1 tablet daily 8. valsartan 80 mg oral tab 1 tab once daily 9. verapamil 180 mg Oral C24P 1 cap once daily 10. aspirin 81 mg Oral chew 1 tab once daily - PMHx: Hypertension; Hypercholesterolemia; hyperlipidemia; Sleep Apnea w/ CPAP; Trigeminal Neuralgia; peripheral artery disease; - PSHx: heart cath; repair of leg fracture; facial fracture repair; - Social history: Smoking status: Patient states former smoker of tobacco. No barriers to communication noted, The patient speaks fluent Luxembourg[place]. - Family history: Not pertinent. - : The pt / caregiver states he / she is not on anticoagulants. Home medication list is obtained from the patient. - Exposure Risk Screening:: None identified. Vital Signs: 08/21 16:47 BP 144 / 100; Pulse 131; Resp 18 S; Temp 96.0(O); Pulse Ox 98% on R/A; Weight 136.08 kg gr2 / 300.01 lbs (R); Height 6 ft. 2 in. (187.96 cm) (R); Pain 3/10; 17:35 BP 160 / 77; Pulse 131; Resp 20; Pulse Ox 97% on R/A; Pain 0/10; dwg 17:50 BP 146 / 92; Pulse 129; Resp 20; Pulse Ox 97% on R/A; dwg 17:55 BP 140 / 94; Pulse 123; Resp 16; Pulse Ox 98% on R/A; dwg 18:00 BP 136 / 107; Pulse 124; Resp 16; Pulse Ox 97% on R/A; dwg 18:43 BP 113 / 79; Pulse 122; Resp 20; Pulse Ox 98% on R/A; Pain 0/10; dwg 19:33 BP 122 / 79; Pulse 122; Resp 20; Pulse Ox 95% on R/A; Pain 0/10; cf2 20:00 BP 116 / 75; Pulse 124; Resp 18; Pulse Ox 100% on 2 lpm NC; cf2 20:30 BP 122 / 64; Pulse 122; Resp 18; Pulse Ox 100% on 2 lpm NC; cf2 21:00 BP 126 / 71; Pulse 122; Resp 18; Pulse Ox 100% on 2 lpm NC; cf2 22:15 BP 125 / 70; Pulse 124; Resp 18; Pulse Ox 100% on R/A; cf2 22:15 BP 144 / 88; Pulse 122; Resp 18; Pulse Ox 100% on 2 lpm NC; cf2 23:52 BP 123 / 62; Pulse 122; Resp 18; Temp 98.0; Pulse Ox 99% on 2 lpm NC; Pain 0/10; cf2 16:47 Body Mass Index 38.52 (136.08 kg, 187.96 cm) gr2 18:00 Denies any chest pain or shortness of breath. No changhe in heart rate following dwg Metoprolol IV x 3. MDM: 17:00 ECG WITH READING ER PHYS+CARDIAG ordered. EDMS 17:16 Aspirin Chewable Tablet 324 mg PO once ordered. fg 17:16 Grinder Set Up Operator Thread Tool/Pulse Ox/q 30 min VS ordered. fg 17:16 IV Saline Lock ordered. fg 17:16 Rhythm Strip to chart ordered. fg 17:16 Undress patient appropriately for examination ordered. fg 17:18 Basic Metabolic Profile Ordered. EDMS 17:18 CBC with Diff Ordered. EDMS 17:18 Cardiac Injury Profile Ordered. EDMS 17:18 Partial Thromboplastin Time Ordered. EDMS 17:18 Prothrombin Time Profile\E\INR Ordered. EDMS 17:18 Troponin Ordered. EDMS 17:19 Chest, 2 View (pa\E\lat) Ordered. EDMS 17:25 Metoprolol 5 mg IVP every 5 minutes; Hold for SBP < 100 or HR < 60. x3 ordered. le 17:31 D-DIMER QUANT Ordered. EDMS 17:31 THYROID PROFILE Ordered. EDMS 17:38 BNP Ordered. EDMS 18:16 Basic Metabolic Profile Reviewed. le 18:16 CBC with Diff Reviewed. le 18:16 THYROID PROFILE Reviewed. le 18:16 Cardiac Injury Profile Reviewed. le 18:16 Partial Thromboplastin Time Reviewed. le 18:16 Prothrombin Time Profile\E\INR Reviewed. le 18:16 Troponin Reviewed. le 18:16 D-DIMER QUANT Reviewed. le 18:16 BNP Reviewed. le 18:16 Chest, 2 View (pa\E\lat) Reviewed. le 18:45 Financial registration complete. zo 18:51 [facility] Payment Agreement was scanned into [employer] and attached to record. zo 19:11 Diltiazem 10 mg IVP once; administer over 2 minutes ordered. le 19:53 Diltiazem 10 mg IVP once; administer over 2 minutes ordered. le 20:55 NS 0.9% 500 ml IV at bolus once ordered. le 22:37 carBAMazepine 400 mg PO once ordered. le 22:37 Atorvastatin 80 mg PO once ordered. le 22:37 Verapamil Extended Release Tablet 180 mg PO once ordered. le 22:41 CARDIAC MARKER PANEL Ordered. EDMS 22:41 CARDIAC MARKER PANEL Ordered. EDMS 22:41 CARDIAC MARKER PANEL Ordered. EDMS 22:42 CBC WITH DIFFERENTIAL Ordered. EDMS 22:42 BASIC METABOLIC PROFILE Ordered. EDMS 22:42 MAGNESIUM LEVEL Ordered. EDMS 22:43 BED REQUEST+ADM ordered. EDMS 22:44 Admission / Observation Status ordered. EDMS 22:44 ECHOCARD,DOPPLER/COLOR FLOW ordered. EDMS 22:44 2 GRAM SODIUM DIET ordered. EDMS 22:47 Acetaminophen Tablet 650 mg PO once ordered. le 23:51 oxyCODONE-acetaminophen 5 mg-325 mg 1 tabs PO once ordered. cf2 08/22 12:22 T-Sheet-- Draft Copy was scanned into [employer] and attached to record. gb Administered Medications: Discontinued: NS 0.9% 500 ml IV at bolus once 08/21 17:20 Drug: Aspirin 324 mg [aspirin 81 mg chewable tablet (4 tabs)] Route: PO; dw 17:50 Drug: Metoprolol 5 mg [metoprolol 5 mg/5 mL intravenous solution (5 mL)] Route: IVP; g Site: right antecubital; 17:55 Drug: Metoprolol 5 mg [metoprolol 5 mg/5 mL intravenous solution (5 mL)] Route: IVP; [facility] Site: right antecubital; 18:06 Drug: Metoprolol 5 mg [metoprolol 5 mg/5 mL intravenous solution (5 mL)] Route: IVP; [facility] Site: right antecubital; 19:41 Follow up: Response: No change in rate dwg 19:20 Drug: Diltiazem 10 mg [diltiazem 5 mg/mL intravenous solution (2 mL)] Route: IVP; Site: cf2 left antecubital; 20:54 Follow up: Response: No significant change. 2 19:41 CANCELLED (Duplicate Order): metoprolol 5 mg IV at bolus once [facility] 20:00 Drug: Diltiazem 10 mg [diltiazem 5 mg/mL intravenous solution (2 mL)] Route: IVP; Site: cf2 left antecubital; 20:54 Follow up: Response: No significant change. cf2 08/22 00:33 Follow up: Response: No significant change. cf2 08/21 20:55 Drug: NS 0.9% 500 ml [sodium chloride 0.9 % intravenous solution] Route: IV; Rate: cf2 bolus; Site: left antecubital; 23:48 Drug: carBAMazepine 400 mg [carbamazepine 200 mg tablet (2 tabs)] Route: PO; 2 08/22 00:32 Follow up: Response: No significant change. cf2 08/21 23:48 Drug: Atorvastatin 80 mg [atorvastatin 20 mg tablet (4 tabs)] Route: PO; cf2 08/22 00:32 Follow up: Response: No significant change. cf2 08/21 23:48 Drug: Verapamil Extended Release Tablet 180 mg Route: PO; cf2 08/22 00:32 Follow up: Response: No significant change. cf2 08/21 23:48 Not Given (Patient Refused): Acetaminophen Tablet 650 mg PO once cf2 23:51 Drug: oxyCODONE-acetaminophen 1 tabs [oxycodone-acetaminophen 5 mg-325 mg tablet (1 cf2 tabs)] Route: PO; 08/22 00:32 Follow up: Response: No significant change. cf2 Signatures: Dispatcher [employer] EDMS Jcarlos Knowles RN RN dwg Peters, Mary, RN RN mcp Zecher, Calvin, RN RN cz Glory Molina, Reg Reg gb Ashlyn Malik, Profile Grinder Technician Unit ml3 Rachna Mann Lisa, VEGETABLE GRADER Alix Austin MD MD fg Familetti-Gonzalez, Christina,MAILE RN cf2 The chart was reviewed and I authenticate all verbal orders and agree with the evaluation and treatment provided.Corrections: (The following items were deleted from the chart) 08/21 17:29 17:18 B-Type NATIURETIC PEPTIDE+LAB ordered. EDMS EDMS 17: 17:26 D-DIMER QUANT+LAB ordered. EDMS EDMS : 17:26 THYROID PROFILE+LAB ordered. EDMS EDMS 19:41 19:40 metoprolol 5 mg IV at bolus once ordered. juaquin reza Attachments: 18:51 [facility] Payment Agreement zo 08/22 12:22 T-Sheet-- Draft Copy gb Chart Complete [facility]
--- NOTE | 2016-08-24 01:44 | EDDOCDS ---
Nurse's Notes [facility] Name: Carlos A England Age: 65 yrs Sex: Male : 1950 Arrival Date: 08/21/2016 Time: 16:44 Bed 10 Private MD: NO PRIMARY PHYSICIAN, . Diagnosis: Unspecified atrial flutter Presentation: 08/21 16:49 Presenting complaint: Patient states: Sent here from [place] for evaluation of atrial mcp flutter. Heart racing, face hot. Adult Sepsis Screening: The patient does not have new or worsening altered mentation. Patient's respiratory rate is less than 22. Systolic blood pressure is greater than 100. Patient has a qSOFA score of 0- Negative Sepsis Screen. Suicide/Homicide risk assessment- the patient denies having any suicidal and/or homicidal ideations and does not present with any other emotional, behavioral or mental health complaints. Status: Patient is not a marine services technician or dependent. Transition of care: patient was not received from another setting of care. 16:49 Acuity: JACK Level 3 [facility] 16:49 Method Of Arrival: Walkin/Carried/Asstd [facility] Triage Assessment: 16:56 General: Appears in no apparent distress, Behavior is cooperative. Pain: Denies pain. [facility] HIV screening NA for this visit Offered previously. Neurological: No deficits noted. Respiratory: Airway is patent Respiratory effort is even, unlabored. Derm: Skin is pink, warm & dry. Historical: - Allergies: no known allergies; - Home Meds: 1. atorvastatin 80 mg oral tab 1 tab once daily 2. Carbamazepine 400mg in am, 200mg in pm, 200mg in evening Oral 3. Vitamin D Oral 1,000 unit daily 4. cilostazol 100 mg oral tab 1 tab 2 times per day 5. Fish Oil 1,000 mg Oral cap 2 tabs daily 6. hydrochlorothiazide 25 mg Oral tab 1 tab once daily 7. multivitamin Oral tab 1 tablet daily 8. valsartan 80 mg oral tab 1 tab once daily 9. verapamil 180 mg Oral C24P 1 cap once daily 10. aspirin 81 mg Oral chew 1 tab once daily - PMHx: Hypertension; Hypercholesterolemia; hyperlipidemia; Sleep Apnea w/ CPAP; Trigeminal Neuralgia; peripheral artery disease; - PSHx: heart cath; repair of leg fracture; facial fracture repair; - Social history: Smoking status: Patient states former smoker of tobacco. No barriers to communication noted, The patient speaks fluent Pashto. - Family history: Not pertinent. - : The pt / caregiver states he / she is not on anticoagulants. Home medication list is obtained from the patient. - Exposure Risk Screening:: None identified. Screenin:33 Screening information is obtained from the patient. Fall risk: No risks identified. cf2 Assistance ADL's: requires no assistance with activities of daily living. Abuse/DV Screen: The patient / caregiver reports he/she is: not in a situation that causes fear, pain or injury. Nutritional screening: No deficits noted. Advance Directives: Further advance directive information is declined. home support is adequate. Assessment: 17:35 General: Appears in no apparent distress, comfortable, Behavior is cooperative, dwg pleasant. Pain: Denies pain. Neurological: Level of Consciousness is awake, alert, Oriented to person, place, time. Cardiovascular:. Respiratory: Airway is patent Respiratory effort is even, unlabored, Respiratory pattern is regular, symmetrical. 18:24 General: Remains in fast A-flutter on monitor, denies any chest discomfort, SOB or dwg dizziness.. 18:42 General: Awake and alert, denies chest pain, at bedside, remains in fast A-flutter dwg in the 120's.. 23:52 Reassessment: Patient appears in no apparent distress at this time. Patient states cf2 feeling better. Patient states symptoms have not improved. Adult Sepsis Screening: The patient does not have new or worsening altered mentation. Patient's respiratory rate is less than 22. Systolic blood pressure is greater than 100. Patient has a qSOFA score of 0- Negative Sepsis Screen. Vital Signs: 16:47 BP 144 / 100; Pulse 131; Resp 18 S; Temp 96.0(O); Pulse Ox 98% on R/A; Weight 136.08 kg gr2 (R); Height 6 ft. 2 in. (187.96 cm) (R); Pain 3/10; 17:35 BP 160 / 77; Pulse 131; Resp 20; Pulse Ox 97% on R/A; Pain 0/10; dwg 17:50 BP 146 / 92; Pulse 129; Resp 20; Pulse Ox 97% on R/A; dwg 17:55 BP 140 / 94; Pulse 123; Resp 16; Pulse Ox 98% on R/A; dwg 18:00 BP 136 / 107; Pulse 124; Resp 16; Pulse Ox 97% on R/A; dwg 18:43 BP 113 / 79; Pulse 122; Resp 20; Pulse Ox 98% on R/A; Pain 0/10; dwg 19:33 BP 122 / 79; Pulse 122; Resp 20; Pulse Ox 95% on R/A; Pain 0/10; cf2 20:00 BP 116 / 75; Pulse 124; Resp 18; Pulse Ox 100% on 2 lpm NC; cf2 20:30 BP 122 / 64; Pulse 122; Resp 18; Pulse Ox 100% on 2 lpm NC; cf2 21:00 BP 126 / 71; Pulse 122; Resp 18; Pulse Ox 100% on 2 lpm NC; cf2 22:15 BP 125 / 70; Pulse 124; Resp 18; Pulse Ox 100% on R/A; cf2 22:15 BP 144 / 88; Pulse 122; Resp 18; Pulse Ox 100% on 2 lpm NC; cf2 23:52 BP 123 / 62; Pulse 122; Resp 18; Temp 98.0; Pulse Ox 99% on 2 lpm NC; Pain 0/10; cf2 16:47 Body Mass Index 38.52 (136.08 kg, 187.96 cm) gr2 18:00 Denies any chest pain or shortness of breath. No changhe in heart rate following dwg Metoprolol IV x 3. Vitals: 16:47 Log In Time: August 21, 2016 at 16:47. RN notified that patient meets Red Flag gr2 criteria. ED Course: 16:46 Patient visited by Rohit Gallego. gr2 16:46 NO PRIMARY PHYSICIAN, . is Private Physician. gr2 16:46 Patient moved to Waiting gr2 16:48 Patient visited by Rohit Gallego. gr2 16:48 Patient moved to Pre RCE gr2 16:50 Triage Initiated [facility] 16:56 Patient visited by Yamile Martinez, MAILE. [facility] 16:56 Elyssa Castillo,RN is Primary Nurse. [facility] 16:56 Patient moved to 10 mcp 17:07 EKG done. (by ED staff). Reviewed by Paige SHAH. jrd 17:08 Patient visited by Rip Holguin, MARILYN. jrd 17:21 Primary Nurse role handed off by Elyssa Castillo RN mcp 17:24 [facility] le 17:32 Patient visited by Paige Valente FNP. le 17:33 Patient visited by Paige Valente FNP. le 17:34 THYROID PROFILE Sent. dwg 17:34 D-DIMER QUANT Sent. dwg 17:34 Basic Metabolic Profile Sent. dwg 17:34 CBC with Diff Sent. dwg 17:34 Cardiac Injury Profile Sent. dwg 17:34 Partial Thromboplastin Time Sent. dwg 17:35 Prothrombin Time Profile\E\INR Sent. dwg 17:35 Troponin Sent. dwg 18:09 Patient visited by Jcarlos Knowles RN. dwg 18:12 Chest, 2 View (pa\E\lat) Returned. EDMS 18:24 Patient visited by Jcarlos Knowles RN. dwg 18:43 Patient visited by Jcarlos Knowles RN. dwg 18:51 [facility] Payment Agreement was scanned into [employer] and attached to record. zo 18:57 Patient name changed from Carlos A\S\B\S\Samanta\S\ to Carlos A\S\M\S\Samanta. EDMS 19:11 Chest, 2 View (pa\E\lat) Returned. EDMS 19:15 Yoko Thompson,RN is Primary Nurse. cf2 19:15 Patient visited by Yoko Thompson,MAILE. cf2 19:33 The patient / caregiver is instructed regarding the plan of care and ED course. Patient cf2 has correct armband on for positive identification. Placed in gown. Bed in low position. Call light in reach. Side rails up X 1. Side rails up X2. ekg monitor on. Pulse ox on. NIBP on. Property :Personal belongings accompany Pt. Door closed. Noise minimized. Visitors limited. Lights dimmed. Moved to private room. Verbal reassurance given. Warm blanket given. Pillow given. Head of bed elevated. 19:55 Patient visited by Yoko Thompson,MAILE. cf2 20:28 Patient visited by Yoko Thompson,MAILE. cf2 21:08 Patient visited by Yoko Thompson RN. cf2 21:17 Patient visited by Yoko Thompson RN. cf2 21:23 Patient visited by Gavino Wild PCA. kb5 21:47 Patient visited by Yoko Thompson RN. cf2 22:34 Rayna Pandey is Hospitalizing Provider. le 23:05 Patient visited by Gavino Wild PCA. kb5 23:57 Patient visited by Yoko Thompson RN. cf2 08/22 00:05 Patient visited by Yoko Thompson RN. cf2 00:23 Patient visited by Yoko Thompson RN. cf2 00:26 Inserted saline lock: 20 gauge in left antecubital area. No procedures done that cf2 require assistance. 12:22 T-Sheet-- Draft Copy was scanned into [employer] and attached to record. gb Administered Medications: Discontinued: NS 0.9% 500 ml IV at bolus once 08/21 17:20 Drug: Aspirin 324 mg [aspirin 81 mg chewable tablet (4 tabs)] Route: PO; dwg 17:50 Drug: Metoprolol 5 mg [metoprolol 5 mg/5 mL intravenous solution (5 mL)] Route: IVP; dwg Site: right antecubital; 17:55 Drug: Metoprolol 5 mg [metoprolol 5 mg/5 mL intravenous solution (5 mL)] Route: IVP; dwg Site: right antecubital; 18:06 Drug: Metoprolol 5 mg [metoprolol 5 mg/5 mL intravenous solution (5 mL)] Route: IVP; dwg Site: right antecubital; 19:41 Follow up: Response: No change in rate dw 19:20 Drug: Diltiazem 10 mg [diltiazem 5 mg/mL intravenous solution (2 mL)] Route: IVP; Site: cf2 left antecubital; 20:54 Follow up: Response: No significant change. cf2 19:41 CANCELLED (Duplicate Order): metoprolol 5 mg IV at bolus once dw 20:00 Drug: Diltiazem 10 mg [diltiazem 5 mg/mL intravenous solution (2 mL)] Route: IVP; Site: cf2 left antecubital; 20:54 Follow up: Response: No significant change. cf2 08/22 00:33 Follow up: Response: No significant change. cf2 08/21 20:55 Drug: NS 0.9% 500 ml [sodium chloride 0.9 % intravenous solution] Route: IV; Rate: cf2 bolus; Site: left antecubital; 23:48 Drug: carBAMazepine 400 mg [carbamazepine 200 mg tablet (2 tabs)] Route: PO; cf2 08/22 00:32 Follow up: Response: No significant change. cf2 08/21 23:48 Drug: Atorvastatin 80 mg [atorvastatin 20 mg tablet (4 tabs)] Route: PO; cf2 08/22 00:32 Follow up: Response: No significant change. cf2 08/21 23:48 Drug: Verapamil Extended Release Tablet 180 mg Route: PO; cf2 08/22 00:32 Follow up: Response: No significant change. cf2 08/21 23:48 Not Given (Patient Refused): Acetaminophen Tablet 650 mg PO once cf2 23:51 Drug: oxyCODONE-acetaminophen 1 tabs [oxycodone-acetaminophen 5 mg-325 mg tablet (1 cf2 tabs)] Route: PO; 08/22 00:32 Follow up: Response: No significant change. cf2 Order Results: Lab Order: Basic Metabolic Profile; SPEC'M 08/21/16 17:30 Test: GLUCOSE, FASTING; Value: 95; Range: 80-110; Units: MG/DL; Status: F Test: BLOOD UREA NITROGEN; Value: 20; Range: 7-18; Abnormal: Above high normal; Units: MG/DL; Status: F Test: CREATININE FOR GFR; Value: 0.99; Range: 0.70-1.30; Units: MG/DL; Status: F Test: GLOMERULAR FILTRATION RATE; Value: > 60.0; Range: >49; Status: F Test: SODIUM LEVEL; Value: 142; Range: 136-145; Units: MEQ/L; Status: F Test: POTASSIUM SERUM; Value: 4.1; Range: 3.5-5.1; Units: MEQ/L; Status: F Test: CHLORIDE LEVEL; Value: 105; Range: 98-107; Units: MEQ/L; Status: F Test: CARBON DIOXIDE LEVEL; Value: 26; Range: 21-32; Units: MEQ/L; Status: F Test: ANION GAP; Value: 11; Range: 8-16; Units: MEQ/L; Status: F Test: CALCIUM LEVEL; Value: 9.4; Range: 8.8-10.2; Units: MG/DL; Status: F Test Note: ; Units are mL/min/1.73 m2 Chronic Kidney Disease Staging per NKF: Stage I & II GFR >=60 Normal to Mildly Decreased Stage III GFR 30-59 Moderately Decreased Stage IV GFR 15-29 Severely Decreased Stage V GFR <15 Very Little GFR Left ESRD GFR <15 on GAME TESTER Lab Order: CBC with Diff; SPEC'M 08/21/16 17:30 Test: WHITE BLOOD COUNT; Value: 10.1; Range: 4.0-10.0; Abnormal: Above high normal; Units: K/mm3; Status: F Test: RED BLOOD COUNT; Value: 5.42; Range: 4.30-6.10; Units: M/mm3; Status: F Test: HEMOGLOBIN; Value: 16.3; Range: 14.0-18.0; Units: g/dl; Status: F Test: HEMATOCRIT; Value: 48.8; Range: 42.0-52.0; Units: %; Status: F Test: MEAN CORPUSCULAR VOLUME; Value: 90.1; Range: 80.0-96.0; Units: fl; Status: F Test: MEAN CORPUSCULAR HEMOGLOBIN; Value: 30.0; Range: 27.0-33.0; Units: pg; Status: F Test: MEAN CORPUSCULAR HGB CONC; Value: 33.3; Range: 32.0-36.5; Units: g/dl; Status: F Test: RED CELL DISTRIBUTION WIDTH; Value: 13.2; Range: 11.5-14.5; Units: %; Status: F Test: PLATELET COUNT, AUTOMATED; Value: 316; Range: 150-450; Units: k/mm3; Status: F Test: NEUTROPHILS %; Value: 59.5; Range: 36.0-66.0; Units: %; Status: F Test: LYMPH %; Value: 26.4; Range: 24.0-44.0; Units: %; Status: F Test: MONO %; Value: 5.8; Range: 0.0-5.0; Abnormal: Above high normal; Units: %; Status: F Test: EOS %; Value: 3.7; Range: 0.0-3.0; Abnormal: Above high normal; Units: %; Status: F Test: BASO %; Value: 2.1; Range: 0.0-1.0; Abnormal: Above high normal; Units: %; Status: F Test: LARGE UNSTAINED CELL %; Value: 2.4; Range: 0.0-4.0; Units: %; Status: F Test: NEUTROPHILS #; Value: 6.0; Range: 1.8-7.7; Units: K/mm3; Status: F Test: LYMPH #; Value: 2.9; Range: 1.5-4.5; Units: K/mm3; Status: F Test: MONO #; Value: 0.6; Range: 0.0-0.8; Units: K/mm3; Status: F Test: EOS #; Value: 0.4; Range: 0.0-0.50; Units: K/mm3; Status: F Test: BASO #; Value: 0.2; Range: 0.0-0.2; Units: K/mm3; Status: F Test: LARGE UNSTAINED CELL #; Value: 0.2; Range: 0.0-0.4; Units: K/mm3; Status: F Lab Order: Cardiac Injury Profile; [facility] 08/21/16 17:30 Test: CPK CREATINE PHOSPHOKINASE; Value: 110; Range: 39-308; Units: U/L; Status: F Test: CK-MB VALUE MASS; Value: 1.0; Range: 0.0-3.6; Units: NG/ML; Status: F Test: MB/CK RELATIVE INDEX; Value: 0.90; Range: < OR =4; Status: F Test Note: ; DIAGNOSIS CRITERIA MMB ng/ml Relative Index (RI) NON-AMI < or = 5 N/A GAINES ZONE > 5 < or = 4 AMI > 5 > 4 Lab Order: Partial Thromboplastin Time; [facility] 08/21/16 17:30 Test: PARTIAL THROMBOPLASTIN TIME; Value: 30.4; Range: 26.6-37.1; Units: SECONDS; Status: F Lab Order: Prothrombin Time Profile\E\INR; [facility] 08/21/16 17:30 Test: PROTHROMBIN TIME; Value: 13.3; Range: 12.3-14.5; Units: SECONDS; Status: F Test: INR; Value: 1.00; Status: F Test Note: ; THERAPUTIC HUMAN INR VALUES INDICATIONS NORMAL RANGES PROPHYLAXIS/TREATMENT OF: VENOUS THROMBOSIS 2.0-3.0 PULMONARY EMBOLISM 2.0-3.0 PREVENTION OF SYSTEMIC EMBOLISM FROM: TISSUE HEART VALVES 2.0-3.0 ACUTE MYOCARDIAL INFARCTION 2.0-3.0 VALVULAR HEART DISEASE 2.0-3.0 ATRIAL FIBRILLATION 2.0-3.0 MECHANICAL VALVES(HIGH RISK) 2.5-3.5 RECURRENT MYOCARDIAL INFARCTION 2.5-3.5 Lab Order: Troponin; [facility] 08/21/16 17:30 Test: TROPONIN I; Value: < 0.02; Range: < 0.10; Units: NG/ML; Status: F Test Note: ; Troponin I Reference Interval for [employer] LOCI: 99th Percentile= 0.00-0.045 ng/ml Risk Stratification: <= 0.10 ng/ml Decreased Risk for Adverse Clinical Events. 0.10-1.50 ng/ml Increased Risk for Adverse Clinical Events. Evaluation of additional criterion and/or repeat testing in 2-6 hours is suggested to rule out myocardial damage. >= 1.50 ng/ml Indicative of Myocardial Injury. Lab Order: D-DIMER QUANT; [facility] 08/21/16 17:30 Test: D-DIMER QUANT; Value: < 270.0; Range: <500; Units: ng/ml; Status: F Lab Order: THYROID PROFILE; [facility] 08/21/16 17:30 Test: T UPTAKE; Value: 30; Range: 33-40; Abnormal: Below low normal; Units: %; Status: F Test: THYROXINE (T4); Value: 8.0; Range: 4.5-12.0; Units: UG/DL; Status: F Test: FREE THYROXINE INDEX; Value: 2.4; Range: 1.4-3.8; Units: %; Status: F Test: THYROID STIMULATING HORMONE; Value: 3.310; Range: 0.358-3.740; Units: uIU/ML; Status: F Lab Order: BNP; [facility] 08/21/16 17:22 Test: BRAIN NATRIURETIC PEPTIDE; Value: 11.7; Range: <100; Units: PG/ML; Status: F Radiology Order: Chest, 2 View (pa\E\lat) Test: Chest, 2 View (pa\E\lat) REASON FOR EXAMINATION: Chest Pain; Chest x-ray: Two views:; ; History: Chest pain.; ; Findings: EKG monitoring electrodes overlie the chest. The lungs are; symmetrically aerated and free of infiltrate. Pleural angles are sharp. Heart; is not felt to be enlarged. Pulmonary vasculature is not increased.; ; Impression:; ; No active disease.; ; ; Signed by; Neo Greenfield MD 08/21/2016 06:42 P; Outcome: 08/21 22:34 Decision to Hospitalize by Provider. castro 08/22 00:26 Discharge Assessment: Patient awake, alert and oriented x 3. No cognitive and/or cf2 functional deficits noted. Patient verbalized understanding of disposition instructions. Patient patient administered narcotics - yes. Patient was admitted to the hospital or transferred to another facility. The following High Risk Discharge criteria are identified: Yes, Admitted to PCU. Condition: stable. No special radiology studies were completed. 00:42 Patient left the ED. cz Signatures: Dispatcher [employer] EDJcarlos Fulton RN RN dwg Peters, Mary, RN RN mcp Zecher, Calvin, RN RN cz Barnhardt, Gloria, Rachna Haney Kristopher, CIRCUIT CLERK CIRCUIT CLERK kb5 Paige Valente, LIQUOR RECTIFIER LIQUOR RECTIFIER Rohit Beaulieu gr2 Rip Holguin, CIRCUIT CLERK CIRCUIT CLERK jrd Yoko Thompson,RN RN cf2 Chart Complete MTDD
--- NOTE | 2016-08-24 01:44 | EDDOCDS ---
Physician Documentation [facility] Name: Carlos A England Age: 65 yrs Sex: Male : 1950 Arrival Date: 08/21/2016 Time: 16:44 Bed 10 Private MD: NO PRIMARY PHYSICIAN, . Disposition: 08/21/16 22:34 Hospitalization ordered by Rayna Pandey for Observation. Preliminary diagnosis is Unspecified atrial flutter. - Bed requested for PCU. - Status is Observation. cz - Condition is Stable. - Problem is new. - Symptoms have improved. Historical: - Allergies: no known allergies; - Home Meds: 1. atorvastatin 80 mg oral tab 1 tab once daily 2. Carbamazepine 400mg in am, 200mg in pm, 200mg in evening Oral 3. Vitamin D Oral 1,000 unit daily 4. cilostazol 100 mg oral tab 1 tab 2 times per day 5. Fish Oil 1,000 mg Oral cap 2 tabs daily 6. hydrochlorothiazide 25 mg Oral tab 1 tab once daily 7. multivitamin Oral tab 1 tablet daily 8. valsartan 80 mg oral tab 1 tab once daily 9. verapamil 180 mg Oral C24P 1 cap once daily 10. aspirin 81 mg Oral chew 1 tab once daily - PMHx: Hypertension; Hypercholesterolemia; hyperlipidemia; Sleep Apnea w/ CPAP; Trigeminal Neuralgia; peripheral artery disease; - PSHx: heart cath; repair of leg fracture; facial fracture repair; - Social history: Smoking status: Patient states former smoker of tobacco. No barriers to communication noted, The patient speaks fluent Irish. - Family history: Not pertinent. - : The pt / caregiver states he / she is not on anticoagulants. Home medication list is obtained from the patient. - Exposure Risk Screening:: None identified. Vital Signs: 08/21 16:47 BP 144 / 100; Pulse 131; Resp 18 S; Temp 96.0(O); Pulse Ox 98% on R/A; Weight 136.08 kg gr2 / 300.01 lbs (R); Height 6 ft. 2 in. (187.96 cm) (R); Pain 3/10; 17:35 BP 160 / 77; Pulse 131; Resp 20; Pulse Ox 97% on R/A; Pain 0/10; dwg 17:50 BP 146 / 92; Pulse 129; Resp 20; Pulse Ox 97% on R/A; dwg 17:55 BP 140 / 94; Pulse 123; Resp 16; Pulse Ox 98% on R/A; dwg 18:00 BP 136 / 107; Pulse 124; Resp 16; Pulse Ox 97% on R/A; dwg 18:43 BP 113 / 79; Pulse 122; Resp 20; Pulse Ox 98% on R/A; Pain 0/10; dwg 19:33 BP 122 / 79; Pulse 122; Resp 20; Pulse Ox 95% on R/A; Pain 0/10; cf2 20:00 BP 116 / 75; Pulse 124; Resp 18; Pulse Ox 100% on 2 lpm NC; cf2 20:30 BP 122 / 64; Pulse 122; Resp 18; Pulse Ox 100% on 2 lpm NC; cf2 21:00 BP 126 / 71; Pulse 122; Resp 18; Pulse Ox 100% on 2 lpm NC; cf2 22:15 BP 125 / 70; Pulse 124; Resp 18; Pulse Ox 100% on R/A; cf2 22:15 BP 144 / 88; Pulse 122; Resp 18; Pulse Ox 100% on 2 lpm NC; cf2 23:52 BP 123 / 62; Pulse 122; Resp 18; Temp 98.0; Pulse Ox 99% on 2 lpm NC; Pain 0/10; cf2 16:47 Body Mass Index 38.52 (136.08 kg, 187.96 cm) gr2 18:00 Denies any chest pain or shortness of breath. No changhe in heart rate following dwg Metoprolol IV x 3. MDM: 17:00 ECG WITH READING ER PHYS+CARDIAG ordered. EDMS 17:16 Aspirin Chewable Tablet 324 mg PO once ordered. fg 17:16 Harness Cutter/Pulse Ox/q 30 min VS ordered. fg 17:16 IV Saline Lock ordered. fg 17:16 Rhythm Strip to chart ordered. fg 17:16 Undress patient appropriately for examination ordered. fg 17:18 Basic Metabolic Profile Ordered. EDMS 17:18 CBC with Diff Ordered. EDMS 17:18 Cardiac Injury Profile Ordered. EDMS 17:18 Partial Thromboplastin Time Ordered. EDMS 17:18 Prothrombin Time Profile\E\INR Ordered. EDMS 17:18 Troponin Ordered. EDMS 17:19 Chest, 2 View (pa\E\lat) Ordered. EDMS 17:25 Metoprolol 5 mg IVP every 5 minutes; Hold for SBP < 100 or HR < 60. x3 ordered. le 17:31 D-DIMER QUANT Ordered. EDMS 17:31 THYROID PROFILE Ordered. EDMS 17:38 BNP Ordered. EDMS 18:16 Basic Metabolic Profile Reviewed. le 18:16 CBC with Diff Reviewed. le 18:16 THYROID PROFILE Reviewed. le 18:16 Cardiac Injury Profile Reviewed. le 18:16 Partial Thromboplastin Time Reviewed. le 18:16 Prothrombin Time Profile\E\INR Reviewed. le 18:16 Troponin Reviewed. le 18:16 D-DIMER QUANT Reviewed. le 18:16 BNP Reviewed. le 18:16 Chest, 2 View (pa\E\lat) Reviewed. le 18:45 Financial registration complete. zo 18:51 [facility] [place] Agreement was scanned into [employer] and attached to record. zo 19:11 Diltiazem 10 mg IVP once; administer over 2 minutes ordered. le 19:53 Diltiazem 10 mg IVP once; administer over 2 minutes ordered. le 20:55 NS 0.9% 500 ml IV at bolus once ordered. le 22:37 carBAMazepine 400 mg PO once ordered. le 22:37 Atorvastatin 80 mg PO once ordered. le 22:37 Verapamil Extended Release Tablet 180 mg PO once ordered. le 22:41 CARDIAC MARKER PANEL Ordered. EDMS 22:41 CARDIAC MARKER PANEL Ordered. EDMS 22:41 CARDIAC MARKER PANEL Ordered. EDMS 22:42 CBC WITH DIFFERENTIAL Ordered. EDMS 22:42 BASIC METABOLIC PROFILE Ordered. EDMS 22:42 MAGNESIUM LEVEL Ordered. EDMS 22:43 BED REQUEST+ADM ordered. EDMS 22:44 Admission / Observation Status ordered. EDMS 22:44 ECHOCARD,DOPPLER/COLOR FLOW ordered. EDMS 22:44 2 GRAM SODIUM DIET ordered. EDMS 22:47 Acetaminophen Tablet 650 mg PO once ordered. le 23:51 oxyCODONE-acetaminophen 5 mg-325 mg 1 tabs PO once ordered. cf2 08/22 12:22 T-Sheet-- Draft Copy was scanned into [employer] and attached to record. gb Administered Medications: Discontinued: NS 0.9% 500 ml IV at bolus once 08/21 17:20 Drug: Aspirin 324 mg [aspirin 81 mg chewable tablet (4 tabs)] Route: PO; dw 17:50 Drug: Metoprolol 5 mg [metoprolol 5 mg/5 mL intravenous solution (5 mL)] Route: IVP; g Site: right antecubital; 17:55 Drug: Metoprolol 5 mg [metoprolol 5 mg/5 mL intravenous solution (5 mL)] Route: IVP; [facility] Site: right antecubital; 18:06 Drug: Metoprolol 5 mg [metoprolol 5 mg/5 mL intravenous solution (5 mL)] Route: IVP; [facility] Site: right antecubital; 19:41 Follow up: Response: No change in rate dwg 19:20 Drug: Diltiazem 10 mg [diltiazem 5 mg/mL intravenous solution (2 mL)] Route: IVP; Site: cf2 left antecubital; 20:54 Follow up: Response: No significant change. 2 19:41 CANCELLED (Duplicate Order): metoprolol 5 mg IV at bolus once [facility] 20:00 Drug: Diltiazem 10 mg [diltiazem 5 mg/mL intravenous solution (2 mL)] Route: IVP; Site: cf2 left antecubital; 20:54 Follow up: Response: No significant change. cf2 08/22 00:33 Follow up: Response: No significant change. cf2 08/21 20:55 Drug: NS 0.9% 500 ml [sodium chloride 0.9 % intravenous solution] Route: IV; Rate: cf2 bolus; Site: left antecubital; 23:48 Drug: carBAMazepine 400 mg [carbamazepine 200 mg tablet (2 tabs)] Route: PO; 2 08/22 00:32 Follow up: Response: No significant change. cf2 08/21 23:48 Drug: Atorvastatin 80 mg [atorvastatin 20 mg tablet (4 tabs)] Route: PO; cf2 08/22 00:32 Follow up: Response: No significant change. cf2 08/21 23:48 Drug: Verapamil Extended Release Tablet 180 mg Route: PO; cf2 08/22 00:32 Follow up: Response: No significant change. cf2 08/21 23:48 Not Given (Patient Refused): Acetaminophen Tablet 650 mg PO once cf2 23:51 Drug: oxyCODONE-acetaminophen 1 tabs [oxycodone-acetaminophen 5 mg-325 mg tablet (1 cf2 tabs)] Route: PO; 08/22 00:32 Follow up: Response: No significant change. cf2 Signatures: Dispatcher [employer] EDMS Jcarlos Knowles RN RN dwg Peters, Mary, RN RN mcp Zecher, Calvin, RN RN cz Glory Molina, Reg Reg gb Ashlyn Malik, Straw Baler Unit ml3 Rachna Mann Lisa, BOARD LINER OPERATOR Alix Austin MD MD fg Familetti-Gonzalez, Christina,MAILE RN cf2 The chart was reviewed and I authenticate all verbal orders and agree with the evaluation and treatment provided.Corrections: (The following items were deleted from the chart) 08/21 17:29 17:18 B-Type NATIURETIC PEPTIDE+LAB ordered. EDMS EDMS 17: 17:26 D-DIMER QUANT+LAB ordered. EDMS EDMS : 17:26 THYROID PROFILE+LAB ordered. EDMS EDMS 19:41 19:40 metoprolol 5 mg IV at bolus once ordered. juaquin reza Attachments: 18:51 [facility] [place] Agreement zo 08/22 12:22 T-Sheet-- Draft Copy gb Chart Complete [facility]
[2016-08-24 04:00] VITALS: BP 162/94
[2016-08-24 05:28] LABS: BASO # 0.1 K/mm3 (0.0-0.2); BASO % 0.9 % (0.0-1.0); EOS # 0.5 K/mm3 (0.0-0.50); EOS % 5.3 % (0.0-3.0); LARGE UNSTAINED CELL # 0.2 K/mm3 (0.0-0.4); LYMPH # 3.1 K/mm3 (1.5-4.5); MEAN CORPUSCULAR HEMOGLOBIN 30.7 pg (27.0-33.0); MEAN CORPUSCULAR HGB CONC 33.9 g/dl (32.0-36.5); MEAN CORPUSCULAR VOLUME 90.7 fl (80.0-96.0); MONO # 0.5 K/mm3 (0.0-0.8); MONO % 5.6 % (0.0-5.0); NEUTROPHILS # 5.2 K/mm3 (1.8-7.7); NEUTROPHILS % 54.2 % (36.0-66.0); PLATELET COUNT, AUTOMATED 325 k/mm3 (150-450); RED CELL DISTRIBUTION WIDTH 12.3 % (11.5-14.5); WHITE BLOOD COUNT 9.5 K/mm3 (4.0-10.0)
[2016-08-24 05:51] LABS: ANION GAP 8 MEQ/L (8-16); BLOOD UREA NITROGEN 22 MG/DL (7-18); CALCIUM LEVEL 8.9 MG/DL (8.8-10.2); CARBON DIOXIDE LEVEL 28 MEQ/L (21-32); CHLORIDE LEVEL 107 MEQ/L (98-107); CREATININE FOR GFR 0.96 MG/DL (0.70-1.30); DIGOXIN LEVEL 0.3 NG/ML (0.5-2.0); GLOMERULAR FILTRATION RATE > 60.0 (>49); GLUCOSE, FASTING 89 MG/DL (80-110); MAGNESIUM LEVEL 2.2 MG/DL (1.8-2.4); SODIUM LEVEL 143 MEQ/L (136-145)
[2016-08-24] MEDS: METOPROLOL TART 50 MG TAB PO SCH (05:53)
[2016-08-24] MEDS ORDERED: DIGOXIN INJ 0.5 MG/2 ML AMP (J1160) IV STA (06:29)
[2016-08-24] MEDS ORDERED: ATENOLOL 50 MG TAB PO SCH ×2 (06:45→21:00)
[2016-08-24 08:00] VITALS: BP 114/74
[2016-08-24] MEDS ORDERED: GLUCAGON FOR INJ 1 MG VIAL (J1610) IV STA (09:11)
[2016-08-24] MEDS ORDERED: DIGOXIN IMMUNE FAB (OVINE) 40MG VIAL (J1162) IV ONE (09:30)
[2016-08-24 10:46] LABS: DIGOXIN LEVEL 0.3 NG/ML (0.5-2.0)
[2016-08-24] MEDS: VITAMIN D 1,000 INTERNATIONAL UNITS TABLET PO SCH ×2 (10:52→21:21)
[2016-08-24] MEDS: OMEGA-3 1050MG CAPSULE PO SCH ×2 (10:52→21:20)
[2016-08-24] MEDS: carBAMazepine 200 MG TAB PO SCH ×2 (10:52→21:20)
[2016-08-24] MEDS: APIXABAN 5 MG TAB (ELIQUIS) PO SCH ×2 (10:52→21:21)
[2016-08-24] MEDS: OCUVITE 1 TAB PO SCH (10:53)
[2016-08-24 12:00] VITALS: BP 104/70
[2016-08-24 16:00] VITALS: BP 114/68
[2016-08-24 19:53] VITALS: BP 112/74
[2016-08-24] MEDS ORDERED: VERAPAMIL 120 MG SR TAB PO SCH (21:00)
[2016-08-24] MEDS: ATORVASTATIN 20 MG TAB PO SCH (21:21)
[2016-08-25] VITALS (7 sets, daily range): BP systolic 120–150; BP diastolic 82–106
--- NOTE | 2016-08-25 00:57 | ECGEPIP ---
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 Patient was in atrial flutter at a heart rate of 129 bpm Electronically Signed On 08-25-2016 0:57:15 EST by Eddie Bruce
[2016-08-25 06:14] LABS: BASO # 0.2 K/mm3 (0.0-0.2); BASO % 2.4 % (0.0-1.0); EOS # 0.5 K/mm3 (0.0-0.50); EOS % 5.7 % (0.0-3.0); LARGE UNSTAINED CELL # 0.2 K/mm3 (0.0-0.4); LYMPH # 2.8 K/mm3 (1.5-4.5); LYMPH % 28.4 % (24.0-44.0); MEAN CORPUSCULAR HEMOGLOBIN 30.1 pg (27.0-33.0); MEAN CORPUSCULAR HGB CONC 34.2 g/dl (32.0-36.5); MONO # 0.7 K/mm3 (0.0-0.8); NEUTROPHILS # 5.1 K/mm3 (1.8-7.7); NEUTROPHILS % 54.5 % (36.0-66.0); PLATELET COUNT, AUTOMATED 264 k/mm3 (150-450); RED CELL DISTRIBUTION WIDTH 12.9 % (11.5-14.5); WHITE BLOOD COUNT 9.3 K/mm3 (4.0-10.0)
[2016-08-25 06:40] LABS: ANION GAP 8 MEQ/L (8-16); BLOOD UREA NITROGEN 18 MG/DL (7-18); CALCIUM LEVEL 8.9 MG/DL (8.8-10.2); CARBON DIOXIDE LEVEL 29 MEQ/L (21-32); CHLORIDE LEVEL 105 MEQ/L (98-107); CREATININE FOR GFR 0.91 MG/DL (0.70-1.30); DIGOXIN LEVEL 0.8 NG/ML (0.5-2.0); GLOMERULAR FILTRATION RATE > 60.0 (>49); GLUCOSE, FASTING 80 MG/DL (80-110); MAGNESIUM LEVEL 2.1 MG/DL (1.8-2.4); POTASSIUM SERUM 3.9 MEQ/L (3.5-5.1); SODIUM LEVEL 142 MEQ/L (136-145)
[2016-08-25] MEDS: METOPROLOL TART 25 MG TABLET PO SCH ×2 (09:21→20:13)
[2016-08-25] MEDS: APIXABAN 5 MG TAB (ELIQUIS) PO SCH ×2 (09:21→20:13)
[2016-08-25] MEDS: OCUVITE 1 TAB PO SCH (09:21)
[2016-08-25] MEDS: VITAMIN D 1,000 INTERNATIONAL UNITS TABLET PO SCH ×2 (09:21→20:12)
[2016-08-25] MEDS: carBAMazepine 200 MG TAB PO SCH ×2 (09:21→20:12)
[2016-08-25] MEDS: OMEGA-3 1050MG CAPSULE PO SCH ×2 (09:22→20:13)
[2016-08-25] MEDS ORDERED: AMIODARONE HCL 150 MG in APPROPRIATE DILUENT 1 EA IV ONE (13:30)
[2016-08-25] MEDS: ATORVASTATIN 20 MG TAB PO SCH (20:12)
[2016-08-26] VITALS (7 sets, daily range): BP systolic 115–144; BP diastolic 71–91
[2016-08-26 05:53] LABS: ANION GAP 9 MEQ/L (8-16); BLOOD UREA NITROGEN 14 MG/DL (7-18); CALCIUM LEVEL 8.9 MG/DL (8.8-10.2); CARBON DIOXIDE LEVEL 27 MEQ/L (21-32); CHLORIDE LEVEL 107 MEQ/L (98-107); CREATININE FOR GFR 0.85 MG/DL (0.70-1.30); GLOMERULAR FILTRATION RATE > 60.0 (>49); GLUCOSE, FASTING 85 MG/DL (80-110); POTASSIUM SERUM 3.7 MEQ/L (3.5-5.1); SODIUM LEVEL 143 MEQ/L (136-145)
[2016-08-26 06:14] LABS: BASO # 0.3 K/mm3 (0.0-0.2); BASO % 2.7 % (0.0-1.0); EOS # 0.5 K/mm3 (0.0-0.50); EOS % 5.5 % (0.0-3.0); LARGE UNSTAINED CELL # 0.2 K/mm3 (0.0-0.4); LYMPH # 2.6 K/mm3 (1.5-4.5); LYMPH % 25.8 % (24.0-44.0); MEAN CORPUSCULAR HGB CONC 34.4 g/dl (32.0-36.5); MEAN CORPUSCULAR VOLUME 87.1 fl (80.0-96.0); MONO # 0.6 K/mm3 (0.0-0.8); MONO % 6.4 % (0.0-5.0); NEUTROPHILS # 5.5 K/mm3 (1.8-7.7); NEUTROPHILS % 57.6 % (36.0-66.0); PLATELET COUNT, AUTOMATED 287 k/mm3 (150-450); WHITE BLOOD COUNT 9.5 K/mm3 (4.0-10.0)
[2016-08-26] MEDS ORDERED: AMIODARONE HCL 150 MG in APPROPRIATE DILUENT 1 EA IV STA (06:49)
--- NOTE | 2016-08-26 08:30 | IPN ---
DATE: 08/24/2015 Yesterday, despite doses of metoprolol, digoxin and continued outpatient Calan patient continues to have atrial flutter, ventricular rate of 84-117. He denies palpitations, lightheadedness, dizziness, near syncopal episode. No complaints of cough. Ambulating well without difficulty. Temperature is 96.2, pulse 117, respiratory rate 20, blood pressure 162/94, 96% on room air. Generally, patient is awake, alert, oriented times three, answering questions appropriately. Lungs are clear to auscultation. No wheezing, rales or rhonchi. Heart: S1, S2. Irregularly irregular. Abdomen is obese, soft, nontender, nondistended. Positive bowel sounds. Extremities: Trace edema. LABORATORY DATA: White count 9.5, hemoglobin 16, hematocrit 47, and platelet count 325. Sodium 142, potassium 4, chloride 107, bicarbonate 27, BUN 22, creatinine 0.96, glucose of 89. MICROBIOLOGY: None. IMAGING STUDY: Chest x-ray, 08/21/2016, no active disease. ASSESSMENT AND PLAN: This is a 65-year-old male with history of hypertension, hyperlipidemia, obesity, sleep apnea on continuous positive airway pressure (CPAP), peripheral arterial disease, presented to the emergency room with atrial flutter, sent by primary care physician for rate control. 1. Atrial flutter with rapid ventricular rate. Patient's heart rate remains at 115-117 despite Calan and metoprolol with digoxin. Patient is continued on Eliquis for CVA prophylaxis with increased patient's metoprolol to 50 mg every 6 hours. Digoxin level, 08/24/2016, 0.3. Patient will be given one dose of digoxin 0.5 mg and changed to atenolol. Will discontinue patient's Calan for now. Monitor for better rate control. Despite three different medications, patient is uncontrolled. Therefore, will consult cardiology, Dr. Bruce for management. 2. Hypertension with hypertensive heart disease. Will increase atenolol to 50 mg twice a day for better control of heart rate and blood pressure for now. 3. At discharge if blood pressure permits, will resume low dose angiotensin receptor thomas (ARB) or angiotensin-converting enzyme (ADELAIDA) inhibitor. 4. Obesity and sleep apnea. Continue with outpatient CPAP. 5. Hyperlipidemia. On fish oil. 6. Peripheral arterial disease. Continue on Lipitor. MTDD
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
--- NOTE | 2016-08-26 08:33 | IPN ---
DATE: 08/25/2016 Patient is seen and examined at the bedside. Chart has been reviewed. Yesterday, patient had episodes of diaphoresis as his heart rate decreased to mid 40s-45 with digoxin, metoprolol on board. At that time, patient was given digibind as well as glucagon with increased heart rate into the 70s. Into the evening, patient's heart rate again became uncontrolled at 115-120. He was given Lopressor this morning 25 twice a day. Awaiting further recommendations from Dr. Bruce who has been consulted from cardiology. Temperature 97.5, pulse 120, respiratory rate 20, blood pressure is 120/80, 95% on room air. Generally, patient is awake, alert, oriented times three, answering questions appropriately. No respiratory distress. No jugular venous distention. Lungs are clear to auscultation. No wheezing, rales or rhonchi. Heart: S1, S2. Irregularly irregular. Abdomen is soft, nontender, nondistended. Obese abdomen. Positive bowel sounds. Extremities: Trace edema. LABORATORY DATA: White count 9.3, hemoglobin 15, hematocrit 44, platelet count 264. Sodium 142, potassium 3.9, chloride 105, bicarbonate 29, BUN 18, creatinine 0.91, glucose of 80. IMAGING STUDY: Chest x-ray, 08/21/2016, no active disease. ASSESSMENT AND PLAN: This is a 65-year-old male with history of hypertension, hyperlipidemia, sleep apnea on continuous positive airway pressure (CPAP), peripheral arterial disease, presents to the emergency department (ED), sent by primary care physician for atrial flutter with rapid ventricular rate. 1. Atrial fibrillation with rapid ventricular rate. Heart rate continues to be under good control into the 120s. Patient's beta-blockade were discontinued yesterday due to episodes of bradycardia with rate of mid 40s and complaints of diaphoresis is currently on Eliquis. I have consulted Dr. Eddie Bruce, cardiology for better heart rate control. 2. Hypertension is stable. Losartan was decreased. Discontinued hydrochlorothiazide due to increasing dose of metoprolol that was required for heart rate control. Currently stable. 3. Hyperlipidemia. On fish oil. 4. Peripheral artery disease. On Lipitor. DISPOSITION: Defer to Dr. Bruce for better heart rate control. In light of recent bradycardia, will defer in giving further digoxin at this time. MTDD
--- NOTE | 2016-08-26 08:33 | IPN ---
DATE: 08/25/2016 Mr. Carlos A England was seen earlier today, he was sitting in his bed in no acute distress at rest. He denies any chest pain or shortness of breath. Yesterday in the morning, he was on a background of verapamil, he received extra doses of digoxin and also metoprolol. Prior to that, he was on atenolol. He developed a slow heart rate about 40 beats per minute, in atrial fibrillation, and he was treated with Digibind and glucagon. He remained stable and slowly his heart rate started slowly yesterday, slightly started coming up and today, it is about 120 beats per minute, in atrial fibrillation. He denies any bleeding. On physical examination, patient is alert and oriented, in no acute distress at rest, and last vital signs this morning reveal a blood pressure of 120/88 with a pulse of 120, respiration 20 and his maximum temperature was 97.5 degrees Fahrenheit with oxygen saturation of 94-97% on room air. He is in positive fluid balance of 1.5 liters. Examination of the head is normocephalic, atraumatic. Neck is supple, no jugular venous distention (JVD). Lungs do not have any wheezing or crackles. Heart examination revealed irregularly irregular heart sounds, 4 gallops. PMI is not displaced. There is no rub. There is a systolic murmur grade 2/6 over the pericardium, louder at the base of /aortic valve area with some minimal radiation to the neck. Abdomen is soft, nontender, bowel sounds are active. Extremities reveal trace bilateral ankle edema. No cyanosis. Neurological examination grossly is negative for focal deficit. LABS: CBC done today revealed WBC of 9.3, hemoglobin 15.2, hematocrit 44.5, platelet 264,000. BMP revealed a sodium of 142, potassium 3.9, chloride 105, CO2 29, BUN 18, creatinine 0.91. Glomerular filtration rate more than 60. Calcium 8.9. Magnesium is 2.1. Serum troponin remained negative at 0.02, 0.03 and 0.04. Telemetry strips are reviewed and revealed atrial flutter and the slowest heart rate was yesterday at about 11:38, 39 beats per minute. IMPRESSION: 1. Atrial flutter, recently diagnosed about 2 months ago and persistent. Patient is now on chronic anticoagulation therapy with Eliquis and will continue the same. He was started today on a small dose of short acting beta thomas with metoprolol tartrate and I will continue same. He will be given a dose of IV amiodarone and he will be monitored. The slow heart rate noted yesterday was most likely the result of a combination of the digoxin and verapamil in the background of beta thomas. As mentioned above, he was treated with Digibind and glucagon. Patient is aware that he may need a pacemaker. Also we have discussed about other treatment modalities for his atrial flutter such as mechanical cardioversion and if needed ablation for his atrial flutter. He is willing to proceed. I will discuss with Dr. Azevedo if he wants to go with a T-guided mechanical cardioversion tomorrow or Friday if he remains in atrial flutter with uncontrolled ventricular rate. 2. Sick sinus syndrome and he will be monitored, on telemetry. 3. History of aortic valve stenosis, mild to moderate. LVEF is normal. 4. Hypertension under fair control and he will be monitored for now on current med. We will stay away from other antihypertensive meds until his heart rate is under control and there is no other new episodes of bradycardia. 5. History of hyperlipidemia, on a statin. 6. History of obesity and sleep apnea. It was a pleasure to participate in the care of Mr. Carlos A England for his underlying cardiac condition. I will continue to monitor along with you while in the hospital. He appears to be stable from a cardiac point of view.
[2016-08-26] MEDS: OCUVITE 1 TAB PO SCH (08:34)
[2016-08-26] MEDS: carBAMazepine 200 MG TAB PO SCH ×2 (08:34→20:37)
[2016-08-26] MEDS: METOPROLOL TART 25 MG TABLET PO SCH ×2 (08:35→20:37)
[2016-08-26] MEDS: VITAMIN D 1,000 INTERNATIONAL UNITS TABLET PO SCH ×2 (08:35→20:37)
[2016-08-26] MEDS: APIXABAN 5 MG TAB (ELIQUIS) PO SCH ×2 (08:35→20:37)
[2016-08-26] MEDS: OMEGA-3 1050MG CAPSULE PO SCH ×2 (08:36→20:37)
--- NOTE | 2016-08-26 09:23 | IPN ---
DATE OF SERVICE: 08/26/2016 Mr. England remains in atrial flutter with uncontrolled rate, typically in 120s. He is asymptomatic at rest and is able to ambulate around the room and around the progressive care unit (PCU) without difficulty. He has no specific complaints. PHYSICAL EXAMINATION: VITAL SIGNS: Blood pressure 115/87, heart rate as above, he is afebrile, saturation 955 on room air. He sleeps with BiPAP. His weight is 146.7 kg which is unchanged from his weight over the last several days. GENERAL: He is alert and oriented and appropriate. He does not appear to be in any distress. His jugular venous pulse (JVP) is not up. LUNGS: Clear to auscultation with good air movement. HEART: Somewhat muffled heart sounds with irregular tachycardia. There is a wheezing type of heart murmur best heard over the aortic valve area radiating to both carotid arteries about 2-3/6 intensity with preserved second heart sound. ABDOMEN: Obese but soft, nontender. There is no peripheral edema. NEUROLOGIC: He is intact. LAB DATA: CBC is normal. Basic metabolic panel is normal as well. CURRENT MEDICATIONS: - metoprolol 25 mg twice daily - Lipitor 80 - Eliquis 5 twice daily - Tegretol 400 twice daily - vitamin D - multivitamin - fish oil ASSESSMENT AND PLAN: Mr. England is a 65-year-old male who presented with persistent atrial flutter. Based on the history it appear that he has had atrial flutter for at least two months if not longer. He was initially treated with a combination of beta thomas, calcium channel thomas and digoxin which eventually led to the development of severe bradycardia and most of the medications were discontinued. At this point he got amiodarone intravenous (IV) and now is only on a relatively small dose of beta thomas. Heart rate is still not well controlled with 2:1 conduction. I had a discussion with the patient about options of further management. One option is to continue amiodarone in oral form plus beta thomas, hopefully accomplishing a better rate control to be followed by outpatient cardioversion after 3-4 weeks of anticoagulation. This approach runs the risk of potential conversion early on even if he has not been anticoagulated for a sufficient amount of time. The amiodarone was already given and consequently I think it makes sense to continue it. The other option is to perform TA cardioversion. I explained to the patient that hopefully he does not have left atrial appendage thrombus and that would allow us to terminate the arrhythmia early on. The patient was to consider his options and will tell me later today or tomorrow how he decided. In an case, my preference probably would be to perform TA cardioversion. In the interim, will continue anticoagulation, beta thomas and oral amiodarone. I will get in touch with the patient later today and hopefully will set up the TA cadioversion either tomorrow or the day after tomorrow.
[2016-08-26] MEDS: AMIODARONE 200 MG TAB (PACERONE) PO SCH ×2 (10:07→20:37)
--- NOTE | 2016-08-26 11:49 | IPN ---
DATE: 08/26/2016 Patient is seen and examined at the bedside. Chart has been reviewed. The patient received one dose of amiodarone yesterday, 120 mg IV with persistent atrial fibrillation with ventricular rate of 120s. This morning denies palpitations, lightheadedness or dizziness. Temperature 96.4, pulse 122, irregular, respiratory rate 18, blood pressure is 115/87, 95% on room air. Lungs are clear to auscultation. No wheezing, rales or rhonchi. Heart: S1 and S2, irregularly irregular. Abdomen is soft, nontender, nondistended. Positive bowel sounds. Extremities no cyanosis, clubbing or pitting edema. Laboratory data CBC, microbiology have been reviewed. ASSESSMENT AND PLAN: 65-year-old male with a history of hypertension, hyperlipidemia, sleep apnea on CPAP, peripheral arterial disease, sent to the ER by primary care physician due to atrial fibrillation/atrial flutter with a rapid ventricular rate. 1. Atrial fibrillation with rapid ventricular rate. With beta blockade, metoprolol, Calan and digoxin, the patient's heart rate decreased to 40s. Complained of diaphoresis. Currently on Eliquis. Interactive Media Specialist, Dr. Eddie Bruce, has been consulted. The patient was see by Dr. Azevedo today. He recommended amiodarone in the oral form beta blockade and 3-4 weeks of anticoagulation. Defer to Dr. Azevedo for further needs and management of the atrial flutter. 2. Hypertension. Controlled. 3. Obesity. Stable. 4. History of hyperlipidemia on fish oil. 5. Peripheral artery disease. On chronic Lipitor.
[2016-08-26] MEDS: ATORVASTATIN 20 MG TAB PO SCH (20:37)
[2016-08-27 00:29] VITALS: BP 130/92
[2016-08-27 05:03] VITALS: BP 137/87
[2016-08-27 05:37] LABS: BASO # 0.2 K/mm3 (0.0-0.2); BASO % 1.8 % (0.0-1.0); EOS # 0.6 K/mm3 (0.0-0.50); LARGE UNSTAINED CELL # 0.2 K/mm3 (0.0-0.4); LARGE UNSTAINED CELL % 2.2 % (0.0-4.0); LYMPH % 28.1 % (24.0-44.0); MEAN CORPUSCULAR HEMOGLOBIN 30.2 pg (27.0-33.0); MEAN CORPUSCULAR HGB CONC 34.3 g/dl (32.0-36.5); MEAN CORPUSCULAR VOLUME 88.2 fl (80.0-96.0); MONO # 0.7 K/mm3 (0.0-0.8); NEUTROPHILS # 5.4 K/mm3 (1.8-7.7); PLATELET COUNT, AUTOMATED 285 k/mm3 (150-450); WHITE BLOOD COUNT 9.9 K/mm3 (4.0-10.0)
[2016-08-27 05:44] LABS: ANION GAP 8 MEQ/L (8-16); BLOOD UREA NITROGEN 16 MG/DL (7-18); CALCIUM LEVEL 8.6 MG/DL (8.8-10.2); CARBON DIOXIDE LEVEL 27 MEQ/L (21-32); CHLORIDE LEVEL 107 MEQ/L (98-107); CREATININE FOR GFR 0.89 MG/DL (0.70-1.30); GLOMERULAR FILTRATION RATE > 60.0 (>49); GLUCOSE, FASTING 83 MG/DL (80-110); POTASSIUM SERUM 3.7 MEQ/L (3.5-5.1); SODIUM LEVEL 142 MEQ/L (136-145)
[2016-08-27 08:00] VITALS: BP 148/84
[2016-08-27] MEDS: VITAMIN D 1,000 INTERNATIONAL UNITS TABLET PO SCH (08:33)
[2016-08-27] MEDS: AMIODARONE 200 MG TAB (PACERONE) PO SCH (08:33)
[2016-08-27] MEDS: carBAMazepine 200 MG TAB PO SCH (08:33)
[2016-08-27] MEDS: OCUVITE 1 TAB PO SCH (08:33)
[2016-08-27 08:34] VITALS: BP 148/84
[2016-08-27] MEDS: APIXABAN 5 MG TAB (ELIQUIS) PO SCH (08:34)
[2016-08-27] MEDS: OMEGA-3 1050MG CAPSULE PO SCH (08:34)
[2016-08-27] MEDS: METOPROLOL TART 25 MG TABLET PO SCH (08:34)
[2016-08-27] MEDS ORDERED: METO50TA2 PO (09:25)
[2016-08-27] MEDS ORDERED: ELIQ5TAB PO (09:25)
[2016-08-27] MEDS ORDERED: AMIO20TA PO (09:25)
--- NOTE | 2016-08-27 10:13 | IPNPDOC ---
[facility] Cardiology Progress Note Date of Service/Time The patient was seen on 08/27/16 at 09:57. Cardiology Progress Note SUBJECTIVE: The patient is sitting upright in bed, denies having any active complaints, states that he is ready to go home. Appears to be in good spirits. OBJECTIVE: Patient appears well and he is sitting up in bed with his legs over the side, he is pleasant and conversant and in no distress. PHYSICAL EXAMINATION: VITAL SIGNS: Please see below. GENERAL APPEARANCE: Well-appearing man, appears his stated age, in no discomfort. HEENT: NCAT, nares patent bilaterally, moist mucous membranes, tongue midline, EOMI LUNGS: CTA b/l, no wheezing, rhonchi, rales appreciated. HEART: systolic, aortic stenotic murmur +2, otherwise no murmurs, rubs or gallops appreciated. ABDOMEN: Soft and nondistended SKIN: intact EXTREMITIES: No swelling, cyanosis, edema appreciated. NEUROLOGICAL: No focal deficits appreciated PSYCHIATRIC: Affect is appropriate LABORATORY WORK: Please see below. ASSESSMENT AND PLAN: Mr England appears to be doing well, he still has heart rate in one hundred- teens, however he is stable to be discharged from cardiology stand point. Spoke to hospitalist attending guarding patient, would suggest sending patient home on metoprolol 50 mg twice a day, amiodarone 400 mg twice a day and on anticoagulation. He will require a one-week cardiology follow up outpatient appointment. The patient has expressed that he would like to try medical therapy first before cardioversion. It was explained to the patient that if his atrial flutter converts to normal sinus rhythm and then returns atrial flutter in the future, that he may require ablation procedure. No further recommendations at this time. Vital Signs/I&O VS/I&O Vital Signs Date Time Temp Pulse Resp B/P Pulse Ox O2 Delivery O2 Flow Rate FiO2 08/27/16 08:34 122 148/84 08/27/16 08:00 96.5 18 96 Room Air I&O- Last 24 Hours up to 6 AM 08/27/16 06:00 Intake Total 1020 ml Output Total 825 ml Balance 195 ml Laboratory Data 24H LABS Laboratory Tests 2 08/27/16 05:15: Anion Gap 8, White Blood Count 9.9, Red Blood Count 5.00, Hemoglobin 15.1, Hematocrit 44.1, Mean Corpuscular Volume 88.2, Mean Corpuscular Hemoglobin 30.2 , Mean Corpuscular Hemoglobin Concent 34.3, Red Cell Distribution Width 13.0, Platelet Count 285, Neutrophils (%) (Auto) 55.0, Lymphocytes (%) (Auto) 28.1, Monocytes (%) (Auto) 7.0H, Eosinophils (%) (Auto) 6.0H, Basophils (%) (Auto) 1.8H, Neutrophils # (Auto) 5.4, Lymphocytes # (Auto) 3.0, Monocytes # (Auto) 0.7 , Eosinophils # (Auto) 0.6H, Basophils # (Auto) 0.2, Blood Urea Nitrogen 16, Creatinine 0.89, Sodium Level 142, Potassium Level 3.7, Chloride Level 107, Carbon Dioxide Level 27, Calcium Level 8.6L, Glomerular Filtration Rate > 60.0, Large Unclassified Cells # 0.2, Large Unclassified Cells % 2.2, Magnesium Level 2.0 CBC/BMP Laboratory Tests 08/27/16 05:15 Calcium Level 8.6 L, Red Blood Count 5.00, Mean Corpuscular Volume 88.2, Mean Corpuscular Hemoglobin 30.2, Mean Corpuscular Hemoglobin Concent 34.3, Red Cell Distribution Width 13.0, Neutrophils (%) (Auto) 55.0, Lymphocytes (%) (Auto) 28.1, Monocytes (%) (Auto) 7.0 H, Eosinophils (%) (Auto) 6.0 H, Basophils (%) ( Auto) 1.8 H, Neutrophils # (Auto) 5.4, Lymphocytes # (Auto) 3.0, Monocytes # ( Auto) 0.7, Eosinophils # (Auto) 0.6 H, Basophils # (Auto) 0.2 GME ATTESTATION GME ATTESTATION My preceptor for this patient encounter was physically present in the building during the encounter and was fully available. As needed, all aspects of the patient interview, examination, medical decision making process, and medical care plan development were reviewed and approved by the preceptor. Preceptor is aware and concurs with the plan as stated in the body of this note and will attest to such by his/her cosignature. KIARA CASTELLANO DO Aug 27, 2016 10:13
--- NOTE | 2016-08-27 16:54 | DSES ---
DATE OF ADMISSION: 08/21/2016 DATE OF DISCHARGE: 08/27/2016 PRIMARY CARE PROVIDER: [facility]. CONSULTANTS: [employer], Dr. Alison Azevedo. PROCEDURES: None. COMPLICATIONS: None. ADMISSION/DISCHARGE DIAGNOSES: 1. Atrial fibrillation with rapid ventricular response (RVR). 2. Hypertension. 3. Obesity. 4. Hyperlipidemia. 5. Peripheral arterial disease. 6. Obstructive sleep apnea (KEITH) on continuous positive airway pressure (CPAP). HOSPITALIZATION COURSE: Patient is a 65-year-old male who presented to [facility] on 08/21/2016, by his primary care provider. Patient has been having upper respiratory symptoms for up to several weeks. During the outpatient visit with primary care provider (PCP), patient was found to have atrial flutter with heart rate greater than 140. Patient is instructed to come to the emergency room immediately. In the emergency room, patient was found to have atrial flutter with RVR. Verapamil was given, however patient did not respond to the medication, then beta thomas was given that slowed down the heart rate to 110-120, and lever miller, Dr. Bruce, was consulted. Patient has a [id number] score of 2 and patient is started on Eliquis. Later digoxin was initiated to help control heart rate. With the combination of beta thomas, calcium channel thomas, and digoxin, patient started to have acute bradycardia with heart rate around 40 on 08/24/2016, and lever miller consulted again. Beta thomas dosage was briefly discontinued and restarted later when patient was more stable. With continuous heart rate medication adjustment, patient's heart rate achieved better control. However, on 08/26/2016, patient had a trial of amiodarone and it was discussed with the patient that patient may benefit from mechanical cardioversion versus ablation and after discussion, patient decided to pursue outpatient mechanical cardioversion after a few weeks of amiodarone. On 08/27/2016, patient is medically stable for discharge with recommendation to followup with Dr. Azevedo in outpatient setting in 2 weeks for reevaluation. OBJECTIVE: VITAL SIGNS: Temperature 96.5, pulse 122, respirations 18, blood pressure 148/84, pulse oximetry 96% in room air. LABORATORY DATA: WBC 9.9, hemoglobin 15.1, hematocrit 44.1, platelet count 285. Sodium 142, potassium 3.7, chloride 107, carbon dioxide 27, BUN 16, creatinine 0.89, GFR greater than 60, fasting glucose 83, calcium 8.6, magnesium 2. DISCHARGE MEDICATIONS: - amiodarone 400 mg by mouth twice a day - Eliquis 5 mg by mouth twice a day - metoprolol tartrate 50 mg by mouth twice a day - atorvastatin 80 mg by mouth nightly - carbamazepine 400 mg by mouth twice a day - vitamin D 1000 units by mouth twice a day - multivitamin one tablet by mouth daily DISCHARGE INSTRUCTIONS: Discontinue lines. Discharge home. Activity as tolerated. Low salt diet as tolerated. Patient should followup with primary care provider in 1 week. Patient should followup with Dr. Azevedo in 2 weeks for atrial fibrillation reevaluation. Before appointment with Dr. Azevedo, patient should continue taking amiodarone as instructed. DISCHARGE CONDITION: Stable. DISCHARGE TIME: Greater than 30 minutes.
== END 2016-08-27 11:25 | disposition home or self-care (01) | DRG 310 ==
LOC: M ED 16:44 → M ED INP 22:35 → M PCU 08-22 00:38
PROVIDERS: ADMIT Hospitalist; ATTEND Internal Medicine
DX: I48.91 Unspecified atrial fibrillation (principal); I10 Essential (primary) hypertension; E66.9 Obesity, unspecified; E78.5 Hyperlipidemia, unspecified; I48.92 Unspecified atrial flutter; G47.33 Obstructive sleep apnea (adult) (pediatric); I35.0 Nonrheumatic aortic (valve) stenosis; I49.5 Sick sinus syndrome; I73.9 Peripheral vascular disease, unspecified; G50.0 Trigeminal neuralgia; Z79.899 Other long term (current) drug therapy; Z80.9 Family history of malignant neoplasm, unspecified; Z87.891 Personal history of nicotine dependence; Z99.89 Dependence on other enabling machines and devices; Z79.82 Long term (current) use of aspirin; Z88.8 Allergy status to other drugs, medicaments and biological substances

== ENCOUNTER → 2016-09-19 | Outpatient (CLI) | payer OTHER ==
[~2016-09-19] MED LIST: AMIO20TA PO; ASPI81TAEC PO; ATOR1TAB18 PO; CARB1TAB20 PO; CILO100T PO; ELIQ5TAB PO; FISH1000 PO; HYDR25TAB PO; METO50TA2 PO; OCUVTAB PO; VALS1TAB46 PO; VERA1TAB11 PO; VITA100066 PO
--- NOTE | 2016-09-19 12:53 | REP ---
Clinical: Acute cough and dyspnea on exertion . Comparison: 08/21/2016 . Technique: PA and lateral. Findings: The mediastinum and cardiac silhouette are normal. The lung mckenna are clear and without acute consolidation, effusion, or pneumothorax. The skeletal structures are intact and normal. Impression: 1. No acute cardiopulmonary process. Signed by Ernesto Aguilar MD 09/19/2016 12:45 P
[2016-09-19 16:13] LABS: ANION GAP 10 MEQ/L (8-16); BLOOD UREA NITROGEN 19 MG/DL (7-18); CALCIUM LEVEL 9.4 MG/DL (8.8-10.2); CARBON DIOXIDE LEVEL 29 MEQ/L (21-32); CHLORIDE LEVEL 101 MEQ/L (98-107); GLOMERULAR FILTRATION RATE > 60.0 (>49); GLUCOSE, FASTING 87 MG/DL (80-110); MEAN CORPUSCULAR HEMOGLOBIN 31.1 pg (27.0-33.0); MEAN CORPUSCULAR HGB CONC 34.7 g/dl (32.0-36.5); MEAN CORPUSCULAR VOLUME 89.8 fl (80.0-96.0); RED CELL DISTRIBUTION WIDTH 12.5 % (11.5-14.5); SODIUM LEVEL 140 MEQ/L (136-145); WHITE BLOOD COUNT 8.2 K/mm3 (4.0-10.0)
== END ==
LOC: M SMT 11:16
PROVIDERS: ATTEND Internal Medicine Cardiovascular Disease
DX: R06.09 Other forms of dyspnea (principal); R05 Cough; R06.2 Wheezing

== ENCOUNTER → 2016-09-30 | Day surgery (SDC) | payer OTHER ==
[~2016-09-30] VITALS: Ht 188 cm; Wt 144.0 kg
[~2016-09-30] MED LIST changes: +LEVALBUTEROL 1.25 MG/0.5 ML CONCENTRATE NEB As Ordered ONE; +LEVALBUTEROL 1.25 MG/0.5 ML CONCENTRATE NEB INH ONE; +LR 1,000 ML IV SCH; +PHENYLephrine HCL 500 MCG/5 ML (100MCG/ML) SYRINGE (J2370) As Ordered ONE; +PROPOFOL 200 MG/20 ML VIAL As Ordered ONE
--- NOTE | 2016-09-30 10:54 | ECGEPIP ---
Stationary ECG Study [facility] Test Date: 2016-09-30 Pat Name: LUI SUAREZ Department: Room: - Gender: M Producer: : [id number] Requested By: Alison Azevedo Order Number: [id number] Reading MD: Birgit Sánhcez Measurements Intervals [place] Rate: 114 P: TX: 0 QRS: 34 QRSD: 98 T: 0 QT: 359 QTc: 496 Interpretive Statements ATRIAL FLUTTER/ WITH RAPID VENTRICULAR RESPONSE ST & T-WAVE ABNORMALITY MORE MARKED ABNORMAL RHYTHM ECG RATE FASTER C/W 08/24/16 Electronically Signed On 09-30-2016 10:54:37 EST by Birgit Sánchez
[2016-09-30 10:55] VITALS: BP 136/77
--- NOTE | 2016-09-30 13:04 | ECGEPIP ---
Stationary ECG Study [facility] Test Date: 2016-09-30 Pat Name: LUI SUAREZ Department: Room: - Gender: M Glass Designer: : [id number] Requested By: Alison Azevedo Order Number: [id number] Reading MD: Birgit Sánchez Measurements Intervals [place] Rate: 72 P: 60 RI: 188 QRS: 25 QRSD: 102 T: 61 QT: 402 QTc: 440 Interpretive Statements SINUS RHYTHM NEW PRIOR A FLUTTER QUESTIONABLE INFERIOR MYOCARDIAL INFARCTION NEW INF QS (ARE NOT CONVINCINGLY PATHOLOGIC) STTJULIA C/W 09/30/16 Earlier Electronically Signed On 09-30-2016 13:03:46 EST by Birgit Sánchez
--- NOTE | 2016-10-01 10:23 | RO ---
DATE OF PROCEDURE: 09/30/2016 PREOPERATIVE DIAGNOSIS: POSTOPERATIVE DIAGNOSIS: PROCEDURE: PROCEDURE: DC cardioversion. SURGEON: Alison Azevedo MD PROFESSIONAL CASTER: There is no clinical assistant. ANESTHESIA: Anesthesia is provided by Velvet Gomez CRNA INDICATION: Atrial flutter. BRIEF HISTORY: Mr. England is a pleasant, 66-year-old man who has had persistent flutter of unknown duration, probably more than 2 or 3 months. It has been really challenging to accomplish good rate control and even on high-dose beta-thomas and amiodarone he continued to have 2:1 conduction with ventricular rate 110s. Consequently, we felt that we should proceed with DC cardioversion in relatively urgent matter because his respiratory status continues to be compromised DESCRIPTION OF PROCEDURE: Procedure was performed in the recovery room. He had defibrillator patches applied in anterior position. Anesthesiology provided sedation. He received total 125 mg of IV propofol. When appropriate level sedation was accomplished, he was cardioverted with 200 joules of energy in synchronized fashion. It led to anabaptist of sinus mechanism. There was no postconversion pause. The procedure was complicated by a brief episode of hypotension and he received a single dose of phenylephrine. He also needed placement of an oral airway for short period of time. Nevertheless, overall the procedure was well tolerated. The plan is to discharge the patient home after brief observation. I do expect followup in our office within 1-2 weeks. I will reduce the dose of metoprolol from 100 mg twice a day to 50 mg twice a day. Otherwise, his medication will remain unchanged. OMARD
== END | disposition home or self-care (01) ==
LOC: M SDC 08:14
PROVIDERS: ATTEND Internal Medicine Cardiovascular Disease
DX: I48.92 Unspecified atrial flutter (principal); I10 Essential (primary) hypertension; I73.9 Peripheral vascular disease, unspecified; E78.4 Other hyperlipidemia; E66.9 Obesity, unspecified; I49.5 Sick sinus syndrome; Z79.01 Long term (current) use of anticoagulants; Z87.891 Personal history of nicotine dependence; Z79.899 Other long term (current) drug therapy
CPT/HCPCS: 92960; 93005; J2370

== ENCOUNTER → 2023-03-12 | Outpatient (CLI) | payer MEDICARE ==
[~2023-03-12] MED LIST changes: +AMIO200T49 PO; -AMIO20TA PO; +ASPI-569 PO; -ASPI81TAEC PO; -ATOR1TAB18 PO; +ATOR80TA59 PO; -CILO100T PO; +CILO100T3 PO; +EZET10TA21; +FLUT50SP17; +HYDR-3490 PO; -HYDR25TAB PO; +JANT5TAB; -LEVALBUTEROL 1.25 MG/0.5 ML CONCENTRATE NEB As Ordered ONE; -LEVALBUTEROL 1.25 MG/0.5 ML CONCENTRATE NEB INH ONE; -LR 1,000 ML IV SCH; -METO50TA2 PO; +METO50TA7 PO; +OMEG10002 PO; -PHENYLephrine HCL 500 MCG/5 ML (100MCG/ML) SYRINGE (J2370) As Ordered ONE; -PROPOFOL 200 MG/20 ML VIAL As Ordered ONE; -VALS1TAB46 PO; +VALS1TAB66 PO; +VERA180T42 PO; -VERA1TAB11 PO; +VITA100093 PO; +VITMTA PO
== END ==
LOC: M CARPUL 08:07
PROVIDERS: ATTEND Nurse Practitioner Family
DX: Z95.3 Presence of xenogenic heart valve (principal)